=== PATIENT | female | born 1965 | race Caucasian/White ===

== ENCOUNTER 2020-10-08 08:06 | Outpatient (REF) | payer MEDICAID, SELFPAY ==
[2020-10-08 09:30] LABS: Alanine Aminotransferase 40 U/L (0-31); Albumin Level 4.5 g/dL (3.5-5.0); Alkaline Phosphatase 69 U/L (39-117); Anion Gap 15 (12-20); Aspartate Amino Transferase 24 U/L (5-31); Bilirubin Total 0.4 mg/dL (0.0-1.0); Blood Urea Nitrogen 24 mg/dL (9-16); Calcium 9.8 mg/dL (8.4-10.2); Carbon Dioxide 26 mmol/L (22-29); Chloride 106 mmol/L (96-108); Cholesterol 292 mg/dL; Estimated Glomerular Filt Rate > 60; Glucose Fasting 113 mg/dL (60-99); HDL Cholesterol 48 mg/dL; Potassium 4.6 mmol/L (3.3-5.1); Sodium 142 mmol/L (135-145); Total Protein 7.2 g/dL (6.5-8.0); Triglycerides 769 mg/dL
== END 2020-10-08 08:07 | disposition home or self-care (01) ==
LOC: HO.LAB 08:06
PROVIDERS: PCP Internal Medicine; Visit Provider Internal Medicine
DX: I10 Essential (primary) hypertension (principal); E78.5 Hyperlipidemia, unspecified
CPT/HCPCS: 36415; 80053; 80061

== ENCOUNTER 2021-01-25 09:28 | Outpatient (REF) | payer MEDICAID, SELFPAY ==
--- NOTE | ~2021-01-25 | XR_ITS ---
EXAMINATION: XR CHEST CLINICAL INFORMATION: Cough COMPARISON: None TECHNIQUE: 2 views of the chest were obtained. FINDINGS: The cardiac and mediastinal contours are normal. The lungs are clear. There is no pleural effusion or pneumothorax. There is slight elevation of the right hemidiaphragm. There are mild degenerative changes of the thoracic spine. XR/XR chest 2V IMPRESSION: No evidence for acute disease in the chest.
== END 2021-01-25 09:29 | disposition home or self-care (01) ==
LOC: HO.HMGCX 09:28
PROVIDERS: PCP Internal Medicine; Visit Provider Physician Assistant
DX: R05.9 Cough, unspecified (principal)
CPT/HCPCS: 71046

== ENCOUNTER 2021-01-25 16:59 | Outpatient (REF) | payer MEDICAID, SELFPAY | END 2021-01-25 17:00 | disposition home or self-care (01) | LOC: HO.LNP 16:59 | PROVIDERS: Visit Provider Physician Assistant | DX: Z20.822 Contact with and (suspected) exposure to COVID-19 (principal); R05.9 Cough, unspecified | CPT/HCPCS: 71046; U0003; U0005 ==

== ENCOUNTER 2021-03-24 08:27 | Outpatient (REF) | payer OTHER, SELFPAY ==
[2021-03-24 09:23] LABS: Alanine Aminotransferase 35 U/L (0-31); Albumin Level 4.5 g/dL (3.5-5.0); Alkaline Phosphatase 55 U/L (39-117); Anion Gap 11 (12-20); Aspartate Amino Transferase 24 U/L (5-31); Bilirubin Total 0.4 mg/dL (0.0-1.0); Blood Urea Nitrogen 19 mg/dL (9-16); C Reactive Protein 0.06 mg/dL (< or = 0.50); Calcium 9.9 mg/dL (8.4-10.2); Carbon Dioxide 29 mmol/L (22-29); Chloride 106 mmol/L (96-108); Cholesterol 259 mg/dL; Estimated Glomerular Filt Rate > 60; Glucose Fasting 95 mg/dL (60-99); HDL Cholesterol 54 mg/dL; LDL Cholesterol Calculated 142 mg/dl; Potassium 4.7 mmol/L (3.3-5.1); Sodium 141 mmol/L (135-145); Total Protein 7.3 g/dL (6.5-8.0); Triglycerides 316 mg/dL
[2021-03-24 09:32] LABS: Rheumatoid Factor < 15.0 IU/mL (<15.0)
[2021-03-24 09:57] LABS: Erythrocyte Sedimentation Rate 6 MM/HR (0-20)
[2021-03-25 13:01] LABS: Anti DNA DS Antibody <1 IU/mL
[2021-03-25 13:21] LABS: Anti Nuclear Antibody Screen NEGATIVE (NEGATIVE)
[2021-03-25 14:47] LABS: Cyclic Citrullinated Peptide <16 UNITS
[2021-03-25 21:26] LABS: Lyme Abs Screen <0.90 index
[2021-03-28 13:01] LABS: Vitamin D 25-OH, D2 <4 ng/mL; Vitamin D 25-OH, D3 35 ng/mL; Vitamin D 25-OH, Total 35 ng/mL (30-100)
== END 2021-03-24 08:28 | disposition home or self-care (01) ==
LOC: HO.LAB 08:27
PROVIDERS: PCP Internal Medicine; Visit Provider Internal Medicine
DX: M25.50 Pain in unspecified joint (principal); I10 Essential (primary) hypertension; E78.5 Hyperlipidemia, unspecified; E55.9 Vitamin D deficiency, unspecified
CPT/HCPCS: 36415; 80053; 80061; 82306; 85652; 86038; 86039; 86140; 86200; 86225; 86431; 86617; 86618

== ENCOUNTER 2021-09-30 09:16 | Outpatient (REF) | payer OTHER, SELFPAY ==
[2021-09-30 09:25] LABS: MANUAL DIFF FLAG NO
[2021-09-30 09:53] LABS: Basophils Percent Auto 0.6 % (0-2); Eosinophils Absolute Auto 0.1 X10*3/uL (0.0-0.4); Eosinophils Percent Auto 2.3 % (0-4); Hemoglobin 12.5 g/dl (12.0-16.0); Imm Gran Abs Auto 0.02 X10*3/uL (0.00-0.03); Imm Gran Pct Auto 0.4 % (0.0-0.4); Lymphocytes Absolute Auto 1.3 X10*3/uL (1.2-4.9); Lymphocytes Percent Auto 25.1 % (20-40); Mean Corpuscular HGB Conc 31.3 g/dl (31.0-35.0); Mean Corpuscular Volume 83.3 fL (80.0-98.0); Mean Platelet Volume 10.4 fL (9.4-12.3); Monocytes Absolute Auto 0.3 X10*3/uL (0.1-1.2); Monocytes Percent Auto 6.1 % (2-11); Neutrophils Absolute Auto 3.4 x10*3/uL (2.0-8.3); Neutrophils Percent Auto 65.5 % (45-73); Platelet Count 239 X10*3/uL (160-400); Red Cell Distribution Width 14.5 % (11.0-16.0); White Blood Count 5.3 X10*3/uL (4.8-10.8)
[2021-09-30 10:52] LABS: Thyroid Stimulating Hormone 1.45 uIU/mL (0.32-4.0); Vitamin D 25-OH Total 27.1 ng/mL (>30)
[2021-09-30 10:53] LABS: Alanine Aminotransferase 48 U/L (0-31); Albumin Level 4.4 g/dL (3.5-5.0); Alkaline Phosphatase 71 U/L (39-117); Anion Gap 14 (12-20); Aspartate Amino Transferase 29 U/L (5-31); Bilirubin Total 0.5 mg/dL (0.0-1.0); Blood Urea Nitrogen 14 mg/dL (9-16); Calcium 9.3 mg/dL (8.4-10.2); Carbon Dioxide 25 mmol/L (22-29); Chloride 106 mmol/L (96-108); Cholesterol 261 mg/dL; Estimated Glomerular Filt Rate > 60; Glucose Fasting 109 mg/dL (60-99); HDL Cholesterol 51 mg/dL; Potassium 4.3 mmol/L (3.3-5.1); Sodium 141 mmol/L (135-145); Total Protein 6.9 g/dL (6.5-8.0); Triglycerides 465 mg/dL
[2021-09-30 11:10] LABS: Vitamin B12 288 pg/mL (200-900)
== END 2021-09-30 09:17 | disposition home or self-care (01) ==
LOC: HO.LAB 09:16
PROVIDERS: PCP Internal Medicine; Visit Provider Internal Medicine
DX: R53.83 Other fatigue (principal); I10 Essential (primary) hypertension; E78.5 Hyperlipidemia, unspecified
CPT/HCPCS: 36415; 80053; 80061; 82306; 82607; 82746; 84443; 85025

== ENCOUNTER 2022-01-29 12:35 | Outpatient (REF) | payer OTHER, SELFPAY ==
--- NOTE | ~2022-01-29 | MM_ITS ---
EXAMINATION: MM SCREENING DIGITAL BREAST TOMOSYNTHESIS, BILATERAL CLINICAL INFORMATION: Screening. Asymptomatic. COMPARISON: Mammography: 10/18/2018, 09/10/2016, 08/15/2015 TECHNIQUE: Digital breast tomosynthesis is performed in both the craniocaudal and mediolateral oblique views along with computer-aided detection (CAD). Synthesized 2D images are generated from the tomosynthesis. FINDINGS: There are scattered areas of fibroglandular density (ACR BI-RADS breast composition Category b). Parenchymal pattern is similar to prior studies. There is no developing density or architectural abnormality. No significant mass. No abnormal calcifications. Small fibronodular densities central and outer right breast are stable from prior exam. The axilla and skin contours are unremarkable. No significant changes. MM/MM tomosynthesis screening BI IMPRESSION: No mammographic evidence of malignancy. ASSESSMENT: BI-RADS 2: Benign RECOMMENDATION: Routine annual mammography screening. This patient's information was entered into a reminder system with a target due date for their next mammogram.
== END 2022-01-29 12:36 | disposition home or self-care (01) ==
LOC: HO.MAMMO 12:35
PROVIDERS: Visit Provider Internal Medicine
DX: Z12.31 Encounter for screening mammogram for malignant neoplasm of breast (principal)
CPT/HCPCS: 77063; 77067

== ENCOUNTER 2022-05-22 08:47 | Outpatient (REF) | payer OTHER, SELFPAY ==
[2022-05-22 09:52] LABS: Alanine Aminotransferase 36 U/L (0-31); Albumin Level 4.3 g/dL (3.5-5.0); Alkaline Phosphatase 63 U/L (39-117); Anion Gap 12 (12-20); Aspartate Amino Transferase 23 U/L (5-31); Bilirubin Total 0.8 mg/dL (0.0-1.0); Blood Urea Nitrogen 16 mg/dL (9-16); Calcium 9.5 mg/dL (8.4-10.2); Carbon Dioxide 28 mmol/L (22-29); Chloride 106 mmol/L (96-108); Cholesterol 231 mg/dL; Estimated Glomerular Filt Rate > 60; Glucose Fasting 105 mg/dL (60-99); HDL Cholesterol 34 mg/dL; LDL Cholesterol Calculated 134 mg/dl; Potassium 4.4 mmol/L (3.3-5.1); Sodium 142 mmol/L (135-145); Total Protein 6.5 g/dL (6.5-8.0); Triglycerides 316 mg/dL
== END 2022-05-22 08:48 | disposition home or self-care (01) ==
LOC: HO.LAB 08:47
PROVIDERS: PCP Internal Medicine; Visit Provider Internal Medicine
DX: Z00.00 Encounter for general adult medical examination without abnormal findings (principal); E78.5 Hyperlipidemia, unspecified
CPT/HCPCS: 36415; 80053; 80061

== ENCOUNTER 2022-06-02 10:41 | Outpatient (REF) | payer OTHER, SELFPAY ==
[2022-06-05 05:24] LABS: HPV mRNA E6/E7 rflx Not Detected (Not Detected)
== END 2022-06-02 10:42 | disposition home or self-care (01) ==
LOC: HO.LNP 10:41
PROVIDERS: PCP Internal Medicine; Visit Provider Advanced Practice Midwife
DX: Z01.419 Encounter for gynecological examination (general) (routine) without abnormal findings (principal)
CPT/HCPCS: 87624; 88142

== ENCOUNTER 2023-01-07 12:43 | Outpatient (AMB) | payer OTHER, SELFPAY ==
--- NOTE | 2023-01-07 12:46 | MHC.PC.OV ---
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: No Accompanied by: Self / Same As Patient Allergies amlodipine Allergy (Intermediate, Verified 01/07/23 12:56) ankle edema codeine [CODEINE] Allergy (Intermediate, Verified 01/07/23 12:56) VOMITING hydrochlorothiazide Allergy (Intermediate, Verified 01/07/23 12:56) low urine output lisinopril Allergy (Intermediate, Verified 01/07/23 12:56) dry cough Penicillins [PENICILLINS] Allergy (Intermediate, Verified 01/07/23 12:56) RASH/GI UPSET Medication List - Last Reconciled 01/07/23 by Ariadne Burgess MD coenzyme Q10 (CoQ-10) 100 mg PO DAILY fluoxetine 40 mg PO DAILY metoprolol succinate ER 25 mg PO DAILY 30 days pantoprazole 40 mg PO DAILY simvastatin 20 mg PO BEDTIME wlssgwr-hnex-krmnf-oreg-capryl 100 mg-150 mg- 50 mg-150 mg 1 cap PO DAILY Tobacco use date assessed: 08/14/22 Dental Screening Dental Screen Date: 01/07/23 Did you have a dental visit in the last 12 months?: Yes Did you have a dental problem in the last 6 months where you did not have access to dental care?: No Was dental information given to patient?: Patient has dentist HPI HPI Comments History of Present Illness Details This is a 57-year-old female with mild recurrent major depression that comes today for her physical exam. Blood pressure elevated and will be recheck in 3 weeks by nurse navigator. Last mammogram was 2022 and was normal. Last Pap smear was May 2022 and was normal. Last colonoscopy was 2017 showing tubular adenoma and will be referred to Gastroenterology for another colonoscopy. No chest pain or shortness of breath. Has cut down on drinking alcohol. Depression stable with SSRIs. [facility] Medical History (Updated 01/07/23 @ 13:10 by Ariadne Burgess MD) Mixed hyperlipidemia Fatigue Mild recurrent major depression Polyarthralgia Depression GERD (gastroesophageal reflux disease) Dyslipidemia Essential hypertension Surgical History Status post correction of deviated nasal septum History of right knee surgery History of tonsillectomy History of tubal ligation History of section Family History Father Hypertension Mother Fibroids Impaired glucose tolerance Maternal Grandmother Bone cancer Maternal Grandfather Diabetes Hypertension CVD (cardiovascular disease) Paternal Grandmother No problems noted. Paternal Grandfather No problems noted. 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 Gerardo Bui, Theresa Crowley, Ethan Siddiqi and colleagues, with an educational alcides from [employer]. Review of Systems Const All systems reviewed & are unremarkable except as noted in HPI and below Eyes Reports no additional complaints, Denies change in vision and Denies other visual disturbances Card Denies chest pain at rest, Denies chest pain with activity, Denies edema, Denies irregular heart rhythm, Denies claudication, Denies dyspnea, Denies dyspnea on exertion, Denies orthopnea, Denies paroxysmal nocturnal dyspnea and Denies slow heart rate Resp Denies cough, Denies dyspnea and Denies dyspnea on exertion GI Denies abdominal pain, Denies change in bowel habits, Denies excessive flatus, Denies nausea and Denies vomiting Denies urinary incontinence, Denies urinary hesitancy and Denies urinary urgency Musc Denies abnormal gait, Denies atrophy, Denies deformity and Denies limited range of motion Skin/Breast Denies bleeding lesions, Denies changing lesions and Denies rash Neuro Denies abnormal gait and Denies lack of coordination Physical exam (Primary Care) Vital Signs: Last Vital Signs Pulse 76 01/07/23 12:48 BP 158/90 H 01/07/23 12:48 Pulse Ox 98 01/07/23 12:48 Oxygen Delivery Method Room Air 01/07/23 12:48 BMI result Body Mass Index 30.3 Tobacco/Smoking Status: Tobacco use Status Tobacco use date assessed 08/14/22 01/07/23 12:51 Patient Tobacco Use Status Former Tobacco user 01/07/23 13:02 Tobacco use type Cigarette 01/07/23 13:02 e-Cigarette/Vaping Use Never Used 01/07/23 13:02 Thrive Assessment: Date of Thrive Assessment Date Thrive assessed 08/14/22 01/07/23 12:51 Const Orientation/consciousness: patient oriented x3 HENMT Head: Yes normal to inspection, Yes normocephalic and Yes atraumatic Ears: external ears normal Eyes General: appearance normal, both eyes and all related structures Eyelids: Yes eyelids normal Conjunctivae: conjunctivae normal Neck Neck: Yes normal visual inspection and Yes supple Resp Effort & Inspection: normal respiratory effort Auscultation: clear to auscultation bilaterally Cardio Jugular venous distension: no JVD Rate: regular rate Rhythm: regular rhythm Heart sounds: S1 normal heart sound present and S2 normal heart sound present GI Inspection: Yes normal to inspection Palpation (GI): Soft to palpation and nontender Auscultation: normal bowel sounds Skin General skin exam: no rashes or lesions noted Neuro General: patient oriented x3 and no focal motor deficits Extrem General: Yes full ROM Psych Appearance: grossly normal Office Procedures Flu Questionnaire Does the patient have a severe egg allergy?: No Immunizations flu vacc [id number] 6mos up(PF) 60 mcg(15 mcgx4)/0.5 mL IM syringe Performing Provider: Ariadne Burgess MD [facility] Documented (not given) by: PAUL Barnes on 01/07/23 12:52 Reason Not Given: Patient Refused Assessment and Plan Assessment & Plan (1) Physical exam: Code(s): Z00.00 - Encounter for general adult medical examination without abnormal findings Plan: Repeat in a year. (2) Mild recurrent major depression: Code(s): F33.0 - Major depressive disorder, recurrent, mild Plan: Continue fluoxetine. Orders: Orders Lipid Panel Today E78.5 - Hyperlipidemia, unspecified, Z00.00 - Encounter for general adult medical examination without abnormal findings Influenza [id number] Immunization Today Z23 - Encounter for immunization Comprehensive [place]. Panel Fast Today Z00.00 - Encounter for general adult medical examination without abnormal findings Referrals Gastroenterology Referral D12.6 - Benign neoplasm of colon, unspecified Coding Level of Care Code Est Pt Prev Care 40-64y(76562) Diagnoses Physical exam Z00.00 Mild recurrent major depression F33.0 Time Spent (min) 35
[2023-01-07 12:48] VITALS: BP 158/90; PULSE 76; O2SAT 98; BMI 30.3
[2023-01-07 13:53] VITALS: BP 150/90
== END 2023-01-07 13:13 | disposition home or self-care (01) ==
PROVIDERS: Visit Provider Internal Medicine
DX: Z00.00 Encounter for general adult medical examination without abnormal findings (principal); F33.0 Major depressive disorder, recurrent, mild
CPT/HCPCS: 99396

== ENCOUNTER 2023-03-03 12:54 | Outpatient (REF) | payer OTHER, SELFPAY ==
[2023-03-04 05:54] LABS: Rubella IgG Antibody 3.13 Index
== END 2023-03-03 12:55 | disposition home or self-care (01) ==
LOC: HO.LAB 12:54
PROVIDERS: PCP Internal Medicine; Visit Provider Internal Medicine
DX: Z01.84 Encounter for antibody response examination (principal)
CPT/HCPCS: 36415; 86735; 86762; 86765

== ENCOUNTER 2023-05-25 13:20 | Outpatient (AMB) | payer OTHER, SELFPAY ==
[2023-05-25 13:23] VITALS: BP 160/94; BMI 30.8
--- NOTE | 2023-05-25 13:23 | A.OFFPC_ITS ---
Vital Signs 05/25/23 13:23 05/25/23 13:59 Height 5 ft 6 in Weight 191 lb BMI 30.8 BP 160/94 H 138/82 Blood Pressure Location Lt brachial Lt brachial Position Sitting Sitting Intake Visit Reasons: bp Intake Note: Patient here for a follow up BP Blind Teacher Required: No Accompanied by: Self / Same As Patient Allergies amlodipine Allergy (Intermediate, Verified 05/25/23 13:49) ankle edema codeine [CODEINE] Allergy (Intermediate, Verified 05/25/23 13:49) VOMITING hydrochlorothiazide Allergy (Intermediate, Verified 05/25/23 13:49) low urine output lisinopril Allergy (Intermediate, Verified 05/25/23 13:49) dry cough Penicillins [PENICILLINS] Allergy (Intermediate, Verified 05/25/23 13:49) RASH/GI UPSET Medication List - Last Reconciled 05/25/23 by Ariadne Burgess MD coenzyme Q10 (CoQ-10) 100 mg PO DAILY fluoxetine 40 mg PO DAILY metoprolol succinate ER 25 mg PO DAILY 30 days pantoprazole 40 mg PO DAILY simvastatin 20 mg PO BEDTIME Tobacco use date assessed: 05/25/23 Dental Screening Dental Screen Date: 05/25/23 Did you have a dental visit in the last 12 months?: Yes Did you have a dental problem in the last 6 months where you did not have access to dental care?: No Was dental information given to patient?: Patient has dentist HPI HPI Comments History of Present Illness Details This is a 58-year-old female with GERD, mild major depression, mixed hyperlipidemia and impaired glucose tolerance that comes today for follow-up on her conditions. Blood pressure slightly elevated which then was repeated and was normal. Blood pressure will still be recheck in 3 weeks by nurse navigator. GERD stable with PPIs. Depression well controlled with fluoxetine. On statins for her cholesterol. Had elevated fasting blood glucose will be monitor. Patient denies any polyuria, polydipsia or unintentional weight loss. [facility] Medical History (Updated 05/25/23 @ 14:01 by Ariadne Burgess MD) Mixed hyperlipidemia Fatigue Mild recurrent major depression Polyarthralgia Depression GERD (gastroesophageal reflux disease) Dyslipidemia Essential hypertension Surgical History Status post correction of deviated nasal septum History of right knee surgery History of tonsillectomy History of tubal ligation History of section Family History Father Hypertension Mother Fibroids Impaired glucose tolerance Maternal Grandmother Bone cancer Maternal Grandfather Diabetes Hypertension CVD (cardiovascular disease) Paternal Grandmother No problems noted. Paternal Grandfather No problems noted. 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 1. Little interest or pleasure in doing things: more than half the days 2. Feeling down, depressed, or hopeless: several days 3. Trouble falling or staying asleep, or sleeping too much: not at all 4. Feeling tired or having little energy: more than half the days 5. Poor appetite or overeating: several days 6. Feeling bad about yourself - or that you are a failure or have let yourself or your family down: not at all 7. Trouble concentrating on things, such as reading the newspaper or watching television: more than half the days 8. Moving or speaking so slowly that other people could have noticed. Or the opposite - being so fidgety or restless that you have been moving around a lot more than usual: nearly every day 9. Thoughts that you would be better off or of hurting yourself in some way: not at all Total score: 11 Depression Screening Interpretation: Positive Depression Screening Follow-up: Existing condition and In treatment Depression Screening Done: Yes 54544 - PHQ-9 Billing: Yes Source: Developed by Drs. Gerardo Bui, Theresa Crowley, Ethan Siddiqi and colleagues, with an educational alcides from [employer]. Thrive Questionnaire Date Thrive assessed: 05/25/23 I am a: Patient What is your living situation today?: I have a steady place to live Within the past 12 months, did the food you bought not last and you didn't have the money to get more?: Never true Within the past 12 months, did you worry whether your food would run out before you got money to buy more?: Never true Do you have trouble paying for medicines?: No Do you have trouble getting transportation to medical appointments?: No Do you have trouble paying your heating and electricity bill?: No Do you have trouble taking care of your child, family member or friend?: No Do you have trouble with day-to-day activities such as bathing, preparing meals, shopping, managing finances, etc.?: No Are you currently unemployed and looking for a job?: No Are you interested in more education?: No Please select the resources that you would like help with: None Currently or been in a relationship where the following occur: no concerns reported THRIVE Score: 0 AUDIT C Alcohol Use Questionnaire (AUDIT-C) 1. How often do you have a drink containing alcohol?: 2-3 times a week 2. How many drinks containing alcohol do you have on a typical day when you are drinking?: 5 or 6 3. How often do you have six or more drinks on one occasion?: Less than monthly Total Score: 6 Score Reviewed/Action Taken: Yes ELVIS-7 AMB Questionnaire ELVIS-7 Date ELVIS - 7 assessed: 05/25/23 Feeling nervous, anxious, or on edge: 1 = Several days Not being able to stop or control worryin = Not at all Worrying too much about different things: 2 = More than half the days Trouble relaxin = More than half the days Being so restless that it is hard to sit still: 1 = Several days Becoming easily annoyed or irritable: 0 = Not at all Feeling afraid as if something awful might happen: 0 = Not at all Total ELVIS-7 score (0-4 normal; 5-9 mild; 10-14 moderate; 15-21 severe): 6 Source: Developed by Drs. Gerardo Bui, Theresa Crowley, Ethan Siddiqi and colleagues, with an educational alcides from [employer]. ELVIS-7 Assessment Billing ELVIS-7 Assessment Tool: ELVIS-7 Assessment 30021 Review of Systems Const All systems reviewed & are unremarkable except as noted in HPI and below Eyes Reports no additional complaints, Denies change in vision and Denies other visual disturbances Card Denies chest pain at rest, Denies chest pain with activity, Denies edema, Denies irregular heart rhythm, Denies claudication, Denies dyspnea, Denies dyspnea on exertion, Denies orthopnea, Denies paroxysmal nocturnal dyspnea and Denies slow heart rate Resp Denies cough, Denies dyspnea and Denies dyspnea on exertion GI Denies abdominal pain, Denies change in bowel habits, Denies excessive flatus, Denies nausea and Denies vomiting Denies urinary incontinence, Denies urinary hesitancy and Denies urinary urgency Musc Denies abnormal gait, Denies atrophy, Denies deformity and Denies limited range of motion Skin/Breast Denies bleeding lesions, Denies changing lesions and Denies rash Neuro Denies abnormal gait, Denies behavioral changes and Denies lack of coordination Psych Denies behavioral changes Physical exam (Primary Care) Vital Signs: Last Vital Signs BP 138/82 05/25/23 13:59 BMI result Body Mass Index 30.8 Tobacco/Smoking Status: Tobacco use Status Tobacco use date assessed 05/25/23 05/25/23 13:33 Patient Tobacco Use Status Former Tobacco user 05/25/23 13:33 Tobacco use type Cigarette 05/25/23 13:33 e-Cigarette/Vaping Use Never Used 05/25/23 13:33 PHQ-9: PHQ-9 Score PHQ-9: Total score 11 05/25/23 13:56 Depression Screening Interpretation: Positive Depression Screening Follow-up: Existing condition and In treatment Thrive Assessment: Date of Thrive Assessment Date Thrive assessed 05/25/23 05/25/23 13:35 Currently or been in a relationship where the following occur: no concerns reported Eyes General: appearance normal, both eyes and all related structures Eyelids: Yes eyelids normal Conjunctivae: conjunctivae normal Neck Neck: Yes normal visual inspection and Yes supple Resp Effort & Inspection: normal respiratory effort Auscultation: clear to auscultation bilaterally Cardio Jugular venous distension: no JVD Rate: regular rate Rhythm: regular rhythm Heart sounds: S1 normal heart sound present and S2 normal heart sound present Extrem General: Yes full ROM Psych Appearance: grossly normal Assessment and Plan Assessment & Plan (1) Mild recurrent major depression: Code(s): F33.0 - Major depressive disorder, recurrent, mild Plan: Continue fluoxetine. (2) GERD (gastroesophageal reflux disease): Code(s): K21.9 - Gastro-esophageal reflux disease without esophagitis Qualifiers: Esophagitis presence: esophagitis presence not specified Qualified Code(s): K21.9 - Gastro-esophageal reflux disease without esophagitis Plan: Continue PPIs. (3) Mixed hyperlipidemia: Code(s): E78.2 - Mixed hyperlipidemia Plan: Continue statins. (4) Impaired fasting glucose: Code(s): R73.01 - Impaired fasting glucose Plan: Follow a low-carbohydrate diet. Do exercise. Orders: Orders Lipid Panel Today E78.5 - Hyperlipidemia, unspecified Comprehensive [place]. Panel Fast Today R73.01 - Impaired fasting glucose Vitamin D 25-OH Total Today E55.9 - Vitamin D deficiency, unspecified Referrals Open Access Screening Colonoscopy Referral D12.6 - Benign neoplasm of colon, unspecified, Z12.11 - Encounter for screening for malignant neoplasm of colon Orthopedics Referral M25.511 - Pain in right shoulder Coding Level of Care Code Est Pt Level 4 (62963) Diagnoses Mild recurrent major depression F33.0 Gastroesophageal reflux disease, unspecified whether esophagitis present K21.9 Esophagitis presence: esophagitis presence not specified Mixed hyperlipidemia E78.2 Impaired fasting glucose R73.01 Additional Codes ELVIS-7 Assessment Billing - ELVIS-7 Assessment Tool: ELVIS-7 Assessment 41988 ([id number]) Time Spent (min) 24
[2023-05-25 13:59] VITALS: BP 138/82
== END 2023-05-25 14:02 | disposition home or self-care (01) ==
PROVIDERS: PCP Internal Medicine; Visit Provider Internal Medicine
DX: K21.9 Gastro-esophageal reflux disease without esophagitis (principal); F33.0 Major depressive disorder, recurrent, mild; E78.2 Mixed hyperlipidemia; R73.01 Impaired fasting glucose
CPT/HCPCS: 99214

== ENCOUNTER 2023-06-08 09:58 | Outpatient (AMB) | payer OTHER, SELFPAY ==
--- NOTE | 2023-06-08 10:06 | MHC.OFFVIS ---
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 She is doing well with no concerns. Attempting to eat a healthy diet with calcium and vitamin D and stays active with exercise. Currently not sexually active w/her partner. Denies any vaginal dryness or irritation. STI testing offered; she declined. Last pap smear; 2020. Last mammogram; not UTD. Colonoscopy is not UTD. Denies any family history of breast, ovarian or colon cancer. [facility] Medical History Mixed hyperlipidemia Fatigue Mild recurrent major depression Polyarthralgia Depression GERD (gastroesophageal reflux disease) Dyslipidemia Essential hypertension Surgical History Status post correction of deviated nasal septum History of right knee surgery History of tonsillectomy History of tubal ligation History of section Family History Father Hypertension Mother Fibroids Impaired glucose tolerance Maternal Grandmother Bone cancer Maternal Grandfather Diabetes Hypertension CVD (cardiovascular disease) Paternal Grandmother No problems noted. Paternal Grandfather No problems noted. 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 Cognitive needs: No Hearing needs: No Vision needs: No Female Reproductive History Menstrual control method: permanent sterilization Permanent Sterilization: BTL Total pregnancies: 2 Full term: 1 Number of Living Children: 1 Date of last pap smear: 06/02/22 (neg pap and hpv) Date of Mammogram: 01/29/22 ([facility] 2) Review of Systems Const All systems reviewed & are unremarkable except as noted in HPI and below Reports as per HPI Eyes Reports no additional complaints ENT Reports no additional complaints Card Reports no additional complaints Resp Reports no additional complaints GI Reports as per HPI and Reports no additional complaints Reports as per HPI Musc Reports no additional complaints Skin/Breast Reports as per HPI Neuro Reports no additional complaints Psych Reports no additional complaints Endo Reports no additional complaints Ron/Lymph Reports no additional complaints Aller/Immun Reports no additional complaints Physical Exam Vital Signs: Last Vital Signs BP 150/82 H 06/08/23 10:07 BMI result Body Mass Index 30.7 Const General: cooperative, healthy appearing, no acute distress, well developed and alert Orientation/consciousness: patient oriented x3 HEENT Head: Yes normal to inspection Eyes General: appearance normal, both eyes and all related structures Neck Neck: Yes normal visual inspection Thyroid: Thyroid normal Chest Chest palpation & inspection: normal inspection of the chest and other (no puckering, dimpling, peau de orange, retraction, discharge, masses) Breast/axilla inspection: normal inspection of the breasts Breast/axilla palpation: normal palpation of the breasts Resp Effort & Inspection: normal respiratory effort GI Inspection: Yes normal to inspection Palpation (GI): Soft to palpation Rectal Exam - Female: deferred General: Yes bladder normal to palpation External Female Exam: normal external appearance and normal appearance of the urethra Speculum Exam - Vagina: normal appearance of the vagina, normal palpation, normal vaginal discharge and vagina atrophic Speculum Exam - Cervix: normal appearance of the cervix and normal palpation Bimanual exam- vagina & uterus: normal bimanual exam, normal palpation, uterine size normal, bladder normal to palpation, normal palpation and non-tender Bimanual Exam- Adnexa, other: no masses Skin General skin exam: no rashes or lesions noted Rashes: no rashes Neuro General: patient oriented x3 Cognition (Neuro): normal cognition Extrem General: Yes normal to inspection Psych Attitude: cooperative Thought process: Normal thought process present Assessment & Plan Assessment & Plan (1) Encounter for well woman exam with routine gynecological exam: Code(s): Z01.419 - Encounter for gynecological examination (general) (routine) without abnormal findings Plan Discussed: Current recommendations for pap smears per ASCCP guidelines. Breast awareness, periodic self breast exams and yearly mammogram. Maintain a healthy lifestyle, well balanced diet including Calcium 1,200 mg and Vitamin D 600 IU daily, and routine exercise. Contact the office with any postmenopausal bleeding. Patient verbalizes understanding and agrees to the plan of care. She was given opportunity to ask questions and all questions were answered to the best of my ability. RTO in 1 year for annual joy loader exam. This note is constructed using voice recognition software. While every effort has been made to ensure accuracy, washroom cleaner errors may have been included. Orders: Orders MM tomosynthesis screening BI Today Z12.31 - Encounter for screening mammogram for malignant neoplasm of breast Coding Level of Care Code Est Pt Prev Care 40-64y(12556) Diagnoses Encounter for well woman exam with routine gynecological exam Z01.419
[2023-06-08 10:07] VITALS: BP 150/82; BMI 30.7
== END 2023-06-08 10:29 | disposition home or self-care (01) ==
PROVIDERS: Visit Provider Advanced Practice Midwife
DX: Z01.419 Encounter for gynecological examination (general) (routine) without abnormal findings (principal)
CPT/HCPCS: 99396

== ENCOUNTER → 2023-06-08 09:58 | Outpatient (BNVA) | payer OTHER, SELFPAY | PROVIDERS: Visit Provider Advanced Practice Midwife ==

== ENCOUNTER 2023-06-16 07:09 | Outpatient (REF) | payer OTHER, SELFPAY ==
--- NOTE | ~2023-06-16 | XR_ITS ---
EXAMINATION: XR SHOULDER, RIGHT CLINICAL INFORMATION: Right shoulder pain COMPARISON: None available. TECHNIQUE: Two views of the right shoulder. FINDINGS: The bones and soft tissues are normal. No fracture. Glenohumeral and acromioclavicular alignment is anatomic with normal joint space. No abnormal soft tissue calcifications. XR/XR shoulder RT min 2V IMPRESSION: Normal right shoulder.
== END 2023-06-16 07:10 | disposition home or self-care (01) ==
LOC: HO.HOSX 07:09
PROVIDERS: Visit Provider Orthopaedic Surgery
DX: M25.511 Pain in right shoulder (principal)
CPT/HCPCS: 73030

== ENCOUNTER 2023-06-16 13:47 | Outpatient (AMB) | payer OTHER, SELFPAY ==
[2023-06-16 13:49] VITALS: BMI 30.7
--- NOTE | 2023-06-16 13:49 | MHC.OFFVIS ---
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 Patient reports her pain has been going on for about 4 years. She thinks that she may have injured her right shoulder while playing softball years ago. She states she has had a cortisone injection which seemed to make her pain worse. She has also done physical therapy which aggravated her pain. She reports difficulty lifting her right hand above shoulder height. Allergies amlodipine Allergy (Intermediate, Verified 06/16/23 14:10) ankle edema codeine [CODEINE] Allergy (Intermediate, Verified 06/16/23 14:10) VOMITING hydrochlorothiazide Allergy (Intermediate, Verified 06/16/23 14:10) low urine output lisinopril Allergy (Intermediate, Verified 06/16/23 14:10) dry cough Penicillins [PENICILLINS] Allergy (Intermediate, Verified 06/16/23 14:10) RASH/GI UPSET PFSH Medical History Mixed hyperlipidemia Fatigue Mild recurrent major depression Polyarthralgia Depression GERD (gastroesophageal reflux disease) Dyslipidemia Essential hypertension Surgical History Status post correction of deviated nasal septum History of right knee surgery History of tonsillectomy History of tubal ligation History of section Family History Father Hypertension Mother Fibroids Impaired glucose tolerance Maternal Grandmother Bone cancer Maternal Grandfather Diabetes Hypertension CVD (cardiovascular disease) Paternal Grandmother No problems noted. Paternal Grandfather No problems noted. 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 Cognitive needs: No Hearing needs: No Vision needs: No Physical Exam Vital Signs: BMI result Body Mass Index 30.7 Const Other: Well-nourished well-developed very friendly female awake alert and oriented x3 in no acute distress Extrem Other: Bilateral upper extremity examination shows good capillary refill, no skin lesions noted, normal sensation light touch Right shoulder examination shows decreased range of motion when compared to her left shoulder, 4+ out of 5 strength with supraspinatus testing, positive impingement signs, tenderness over her acromioclavicular joint, no instability Results Reviewed Results Reviewed: X-rays of the patient's right shoulder show severe acromioclavicular joint narrowing, a type 3 acromion, no acute bony abnormalities Assessment & Plan Assessment & Plan (1) Right shoulder pain: Code(s): M25.511 - Pain in right shoulder Plan Ms. Mandujano presents with progressively worsening right shoulder pain and weakness due to impingement syndrome as well as possible full-thickness rotator cuff tearing. Thus, I will send the patient for an MRI of her right shoulder for further evaluation. I will see her back once the MRI is completed to discuss the findings and treatment options. She will continue with her range of motion exercises in the meantime to prevent stiffness. Feel free to call me at any time should questions regarding her orthopedic management arise. Thank you very much for asking me to see this very friendly patient. I spent 22 minutes in reviewing the patient's records and imaging studies, seeing the patient and documenting in the medical record. Orders: Orders XR shoulder RT min 2V Today M25.511 - Pain in right shoulder MR shoulder RT wo con Today M25.511 - Pain in right shoulder Coding Level of Care Code New Pt Level 2 (68012) Diagnoses Right shoulder pain M25.511
== END 2023-06-16 14:20 | disposition home or self-care (01) ==
PROVIDERS: PCP Internal Medicine; Visit Provider Orthopaedic Surgery
DX: M25.511 Pain in right shoulder (principal)
CPT/HCPCS: 99202

== ENCOUNTER 2023-06-29 07:21 | Outpatient (REF) | payer OTHER, SELFPAY | END 2023-06-29 07:22 | disposition home or self-care (01) | LOC: HO.MAMMO 07:21 | PROVIDERS: PCP Internal Medicine; Visit Provider Advanced Practice Midwife | DX: Z12.31 Encounter for screening mammogram for malignant neoplasm of breast (principal) | CPT/HCPCS: 77063; 77067 ==

== ENCOUNTER → 2023-06-29 07:30 | Outpatient (BNV) | payer SELFPAY | PROVIDERS: PCP Internal Medicine; Visit Provider Radiology Diagnostic Radiology | DX: Z12.31 Encounter for screening mammogram for malignant neoplasm of breast (principal) | CPT/HCPCS: 77063; 77067 ==

== ENCOUNTER 2023-07-19 10:13 | Outpatient (REF) | payer OTHER, SELFPAY ==
--- NOTE | ~2023-07-19 | MR_ITS ---
EXAMINATION: MR SHOULDER WITHOUT CONTRAST, RIGHT CLINICAL INFORMATION: Chronic right shoulder pain. Decreased range of motion. COMPARISON: Right shoulder radiographs dated 06/16/2023 and MRI dated 09/21/2017. TECHNIQUE: MRI of the shoulder without contrast was performed on a high-field scanner. FINDINGS: ROTATOR CUFF: Mild supraspinatus and infraspinatus tendinosis. Focus of bursal surface partial tearing at the junctional fibers measuring approximately 1.4 x 1.2 cm (AP by ML), increased in prominence when compared to the prior examination. The articular surface tendon fibers remaining intact. [id number] subscapularis tendinosis, increased when compared to the prior examination. No full-thickness rotator cuff tendon tear. No muscle atrophy or fatty infiltration. BICEPS: Intact. CORACOACROMIAL ARCH: The undersurface of the acromion is curved with tiny subacromial spurs. Mild acromioclavicular osteoarthritis, similar when compared to the prior examination. Fluid and edema within the subacromial-subdeltoid bursa, consistent mild bursitis, decreased when compared to the prior examination. LABRUM/CAPSULE: No labral tear. Intact joint capsule. GLENOHUMERAL JOINT/MARROW: Intact articular cartilage. No acute osseous injury. MR/MR shoulder RT wo con IMPRESSION: 1. Mild supraspinatus and infraspinatus tendinosis with a focus of bursal surface partial tearing at the junctional fibers measuring 1.4 x 1.2 cm, increased in prominence when compared to the prior examination. The articular surface tendon fibers remain intact. 2. Hhij-xe-kzzswirs subscapularis tendinosis, increased when compared to the prior examination. 3. Mild acromioclavicular osteoarthritis with tiny subacromial spurs, unchanged. 4. Mild subacromial-subdeltoid bursitis, decreased when compared to the prior examination.
== END 2023-07-19 10:14 | disposition home or self-care (01) ==
LOC: HO.MRI 10:13
PROVIDERS: PCP Internal Medicine; Visit Provider Orthopaedic Surgery
DX: M25.511 Pain in right shoulder (principal)
CPT/HCPCS: 73221

== ENCOUNTER 2023-08-10 14:34 | Outpatient (AMB) | payer OTHER, SELFPAY ==
[2023-08-10 14:41] VITALS: BMI 30.7
--- NOTE | 2023-08-10 14:41 | MHC.OFFVIS ---
Vital Signs 08/10/23 14:41 Height 5 ft 6 in Weight 190 lb BMI 30.7 Intake Visit Reasons: OV- MRI review Right shoulder Intake Note: Emy is a 58 year old female who presents with complaints of intermittent discomfort in her right shoulder. She reports mild weakness when lifting her right hand above shoulder height. She takes Tylenol and anti-inflammatory medicines which gave her mild relief. 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 Allergies amlodipine Allergy (Intermediate, Verified 08/10/23 14:42) ankle edema codeine [CODEINE] Allergy (Intermediate, Verified 08/10/23 14:42) VOMITING hydrochlorothiazide Allergy (Intermediate, Verified 08/10/23 14:42) low urine output lisinopril Allergy (Intermediate, Verified 08/10/23 14:42) dry cough Penicillins [PENICILLINS] Allergy (Intermediate, Verified 08/10/23 14:42) RASH/GI UPSET Medication List - Last Reconciled 08/11/23 by Papi Rogel MD coenzyme Q10 (CoQ-10) 100 mg PO DAILY fluoxetine 40 mg PO DAILY metoprolol succinate ER 25 mg PO DAILY 30 days pantoprazole 40 mg PO DAILY simvastatin 20 mg PO BEDTIME REPLACED BY [facility] Medical History Mixed hyperlipidemia Fatigue Mild recurrent major depression Polyarthralgia Depression GERD (gastroesophageal reflux disease) Dyslipidemia Essential hypertension Surgical History Status post correction of deviated nasal septum History of right knee surgery History of tonsillectomy History of tubal ligation History of section Family History Father Hypertension Mother Fibroids Impaired glucose tolerance Maternal Grandmother Bone cancer Maternal Grandfather Diabetes Hypertension CVD (cardiovascular disease) Paternal Grandmother No problems noted. Paternal Grandfather No problems noted. 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 Cognitive needs: No Hearing needs: No Vision needs: No Physical Exam Vital Signs: BMI result Body Mass Index 30.7 Const Other: Well-nourished well-developed very friendly female awake alert and oriented x3 in no acute distress Extrem Other: Bilateral upper extremity examination shows good capillary refill, no skin lesions noted, normal sensation light touch Right shoulder examination shows full range of motion when compared to her left shoulder, 4/5 strength with supraspinatus testing, positive impingement signs, tenderness over her acromioclavicular joint, no instability Results Reviewed Results Reviewed: MRI of the patient's right shoulder shows severe acromioclavicular joint narrowing, a type 2 acromion, a small tear of the anterior aspect of the supraspinatus tendon Assessment & Plan Assessment & Plan (1) Right shoulder pain: Code(s): M25.511 - Pain in right shoulder Category: Medical Plan Ms. Mandujano presents with intermittent right shoulder discomfort due to impingement syndrome and a small rotator cuff tear. I had a lengthy discussion with the patient regarding the treatment options. At this point the patient's symptoms are tolerable to her. She wishes to hold off on surgery. The patient does understand that her tear can become larger in size and even irreparable over time. The do's and don'ts of lifting were discussed at length with the patient. She will contact me prior to her follow-up appointment in 4-6 months should her symptoms worsen in any way. Feel free to call me at any time should questions regarding her orthopedic management arise. I spent 22 minutes in reviewing the patient's records and imaging studies, seeing the patient and documenting in the medical record. Coding Level of Care Code Est Pt Level 3 (41140) Diagnoses Right shoulder pain M25.511
== END 2023-08-10 14:59 | disposition home or self-care (01) ==
PROVIDERS: PCP Internal Medicine; Visit Provider Orthopaedic Surgery
DX: M25.511 Pain in right shoulder (principal)
CPT/HCPCS: 99213

== ENCOUNTER → 2023-08-10 14:34 | Outpatient (BNVA) | payer OTHER, SELFPAY | PROVIDERS: PCP Internal Medicine; Visit Provider Orthopaedic Surgery ==

== ENCOUNTER 2024-01-10 09:22 | Outpatient (AMB) | payer OTHER, SELFPAY ==
[2024-01-10 09:32] VITALS: BP 160/88; BMI 30.5
--- NOTE | 2024-01-10 09:32 | A.OFFPC_ITS ---
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 Required: No Accompanied by: Self / Same As Patient Allergies amlodipine Allergy (Intermediate, Verified 01/10/24 09:46) ankle edema codeine [CODEINE] Allergy (Intermediate, Verified 01/10/24 09:46) VOMITING hydrochlorothiazide Allergy (Intermediate, Verified 01/10/24 09:46) low urine output lisinopril Allergy (Intermediate, Verified 01/10/24 09:46) dry cough Penicillins [PENICILLINS] Allergy (Intermediate, Verified 01/10/24 09:46) RASH/GI UPSET Medication List - Last Reconciled 01/10/24 by Ariadne Burgess MD coenzyme Q10 (CoQ-10) 100 mg PO DAILY fluoxetine 40 mg PO DAILY metoprolol succinate ER 25 mg PO DAILY 30 days pantoprazole 40 mg PO DAILY simvastatin 20 mg PO BEDTIME Tobacco use date assessed: 05/25/23 Dental Screening Dental Screen Date: 05/25/23 HPI HPI Comments History of Present Illness Details This is a 58-year-old female with mild recurrent major depression and hypertension that comes for her physical exam. Depression stable with SSRIs. Blood pressure elevated and she has not take her metoprolol and I will change metoprolol to verapamil. Blood pressure will be recheck in 3 weeks by nurse navigator. Denies any chest pain or shortness on breath. Mammogram done 2023 was normal. Pap smear done 2022 was normal. Colonoscopy is scheduled to be done this year. She fell about 2 months ago and hit her left ribcage and since then has hurt and would like to see chiropractor. She also has chronic lumbar pain that would also like to be evaluated by chiropractor services. She drinks alcohol and is trying to cut down. [facility] Medical History (Updated 01/10/24 @ 09:56 by Ariadne Burgess MD) Mixed hyperlipidemia Fatigue Mild recurrent major depression Polyarthralgia Depression GERD (gastroesophageal reflux disease) Dyslipidemia Essential hypertension Surgical History Status post correction of deviated nasal septum History of right knee surgery History of tonsillectomy History of tubal ligation History of section Family History Father Hypertension Dementia Mother Fibroids Impaired glucose tolerance Dementia Maternal Grandmother Bone cancer Maternal Grandfather Diabetes Hypertension CVD (cardiovascular disease) Paternal Grandmother No problems noted. Paternal Grandfather No problems noted. Maternal Aunt Cervical cancer Family/Other FH: mental illness Social History Housing: House Alcohol intake: current Alcohol intake frequency: a few times a week Alcohol type: beer Patient Tobacco Use Status: Former Tobacco user Tobacco use type: Cigarette e-Cigarette/Vaping Use: Never Used Second Hand Smoke Exposure: No service: Yes Current occupational status: employed Current occupation: [employer] , Right hand dominate Current occupational exposures/hazards: No Cognitive needs: No Hearing needs: No Vision needs: No Questionnaire PHQ-9 Over the last 2 weeks, how often have you been bothered by any of the following problems? 1. Little interest or pleasure in doing things: more than half the days 2. Feeling down, depressed, or hopeless: more than half the days 3. Trouble falling or staying asleep, or sleeping too much: more than half the days 4. Feeling tired or having little energy: more than half the days 5. Poor appetite or overeating: nearly every day 6. Feeling bad about yourself - or that you are a failure or have let yourself or your family down: several days 7. Trouble concentrating on things, such as reading the newspaper or watching television: several days 8. Moving or speaking so slowly that other people could have noticed. Or the opposite - being so fidgety or restless that you have been moving around a lot more than usual: several days 9. Thoughts that you would be better off or of hurting yourself in some way: not at all Total score: 14 Depression Screening Interpretation: Positive Depression Screening Follow-up: Existing condition, In treatment and Follow-up Visit Requested Depression Screening Done: Yes 20381 - PHQ-9 Billing: Yes Source: Developed by Drs. Gerardo Bui, Theresa Crowley, Ethan Siddiqi and colleagues, with an educational alcides from [employer]. Thrive Questionnaire Date Thrive assessed: 01/10/24 I am a: Patient What is your living situation today?: I have a steady place to live Within the past 12 months, did the food you bought not last and you didn't have the money to get more?: Never true Within the past 12 months, did you worry whether your food would run out before you got money to buy more?: Never true Do you have trouble paying for medicines?: No Do you have trouble getting transportation to medical appointments?: No Do you have trouble paying your heating and electricity bill?: No Do you have trouble taking care of your child, family member or friend?: No Do you have trouble with day-to-day activities such as bathing, preparing meals, shopping, managing finances, etc.?: Yes Are you currently unemployed and looking for a job?: No Are you interested in more education?: No Please select the resources that you would like help with: None Currently or been in a relationship where the following occur: No concerns reported THRIVE Score: 0 AUDIT C Alcohol Use Questionnaire (AUDIT-C) 1. How often do you have a drink containing alcohol?: 2-3 times a week 2. How many drinks containing alcohol do you have on a typical day when you are drinking?: 5 or 6 3. How often do you have six or more drinks on one occasion?: Weekly Total Score: 8 Score Reviewed/Action Taken: Yes (Advise to cut down on drinking alcohol) ELVIS-7 AMB Questionnaire ELVIS-7 Date ELVIS - 7 assessed: 01/10/24 Feeling nervous, anxious, or on edge: 1 = Several days Not being able to stop or control worryin = Several days Worrying too much about different things: 1 = Several days Trouble relaxin = Several days Being so restless that it is hard to sit still: 1 = Several days Becoming easily annoyed or irritable: 1 = Several days Feeling afraid as if something awful might happen: 1 = Several days Total ELVIS-7 score (0-4 normal; 5-9 mild; 10-14 moderate; 15-21 severe): 7 Source: Developed by Drs. Gerardo Bui, Theresa Crowley, Ethan Siddiqi and colleagues, with an educational alcides from [employer]. ELVIS-7 Assessment Billing ELVIS-7 Assessment Tool: ELVIS-7 Assessment 36552 Review of Systems Const All systems reviewed & are unremarkable except as noted in HPI and below Card Denies chest pain at rest, Denies chest pain with activity, Denies edema, Denies irregular heart rhythm, Denies claudication, Denies dyspnea, Denies dyspnea on exertion, Denies orthopnea, Denies paroxysmal nocturnal dyspnea and Denies slow heart rate Resp Denies cough, Denies dyspnea and Denies dyspnea on exertion GI Denies abdominal pain, Denies change in bowel habits, Denies excessive flatus, Denies nausea and Denies vomiting Musc Reports back pain Neuro Denies lack of coordination Physical exam (Primary Care) Vital Signs: Last Vital Signs BP 160/88 H 01/10/24 09:32 Care Plan Goal for BP management: Start verapamil and discontinue metoprolol. Blood pressure goal is equal or less than 130/80. Next steps: Recheck blood pressure with nurse navigator in 3 weeks. BMI result Body Mass Index 30.5 BMI Assessment/Plan discussion: High BMI High, discussed plan: lifestyle, weight reduction, dietary, physical activity and alcohol moderation Tobacco/Smoking Status: Tobacco use Status Tobacco use date assessed 05/25/23 01/10/24 09:36 Patient Tobacco Use Status Former Tobacco user 01/10/24 09:36 Tobacco use type Cigarette 01/10/24 09:36 e-Cigarette/Vaping Use Never Used 01/10/24 09:36 PHQ-9: PHQ-9 Score PHQ-9: Total score 14 01/10/24 09:53 Depression Screening Interpretation: Positive Depression Screening Follow-up: Existing condition, In treatment and Follow-up Visit Requested Thrive Assessment: Date of Thrive Assessment Date Thrive assessed 01/10/24 01/10/24 09:36 Currently or been in a relationship where the following occur: No concerns reported HENMT Head: Yes normal to inspection, Yes normocephalic and Yes atraumatic Ears: external ears normal Eyes General: appearance normal, both eyes and all related structures Eyelids: Yes eyelids normal Conjunctivae: conjunctivae normal Neck Neck: Yes normal visual inspection and Yes supple Resp Effort & Inspection: normal respiratory effort Auscultation: clear to auscultation bilaterally Cardio Jugular venous distension: no JVD Rate: regular rate Rhythm: regular rhythm Heart sounds: S1 normal heart sound present and S2 normal heart sound present GI Inspection: Yes normal to inspection Palpation (GI): Soft to palpation and nontender Auscultation: normal bowel sounds Skin General skin exam: no rashes or lesions noted Neuro General: no focal motor deficits Extrem General: Yes full ROM Psych Appearance: grossly normal Office Procedures Flu Questionnaire Does the patient have a severe egg allergy?: No Immunizations Fluarix Triv [id number] (PF) 45 mcg (15 mcg x 3)/0.5 mL IM syringe Performing Provider: Ariadne Burgess MD [facility] Documented (not given) by: PAUL Barnes on 01/10/24 09:38 Reason Not Given: Patient Refused Coding Level of Care Code Est Pt Level 3 (76704) Est Pt Prev Care 40-64y(10611) Diagnoses Physical exam Z00.00 Mild recurrent major depression F33.0 Lumbar pain M54.50 Rib pain R07.81 Essential hypertension I10 Additional Codes ELVIS-7 Assessment Billing - ELVIS-7 Assessment Tool: ELVIS-7 Assessment 25333 ([id number]) Time Spent (min) 34 Assessment & Plan Assessment & Plan (1) Physical exam: Code(s): Z00.00 - Encounter for general adult medical examination without abnormal findings Category: Medical Plan: Repeat in a year. (2) Mild recurrent major depression: Code(s): F33.0 - Major depressive disorder, recurrent, mild Category: Medical Plan: Continue SSRIs. (3) Lumbar pain: Code(s): M54.50 - Low back pain, unspecified Category: Medical Plan: Referred to chiropractor. (4) Rib pain: Code(s): R07.81 - Pleurodynia Category: Medical Plan: Referred to chiropractor. (5) Essential hypertension: Code(s): I10 - Essential (primary) hypertension Category: Medical Plan: Discontinue metoprolol. Start verapamil. Blood pressure goal is equal or less than 130/80. Recheck blood pressure with nurse navigator in 3 weeks. Orders: Orders Influenza [id number] Immunization Today Z23 - Encounter for immunization Lipid Panel Today E78.5 - Hyperlipidemia, unspecified Comprehensive [place]. Panel Fast Today Z00.00 - Encounter for general adult medical examination without abnormal findings Referrals Chiropractic Referral M54.50 - Low back pain, unspecified, R07.81 - Pleurodynia Medications: New verapamil ER 120 mg PO DAILY 90 caps 1RF 90 days I10 - Essential (primary) hypertension rosuvastatin 20 mg PO DAILY 90 tabs 1RF 90 days E78.5 - Hyperlipidemia, unspecified Discontinued simvastatin Discontinued Reason: Patient Completed Course 20 mg PO BEDTIME 90 tabs 3RF metoprolol succinate ER Discontinued Reason: Patient Completed Course 25 mg PO DAILY 30 days 60 tabs 0RF I10 - Essential (primary) hypertension
== END 2024-01-10 10:01 | disposition home or self-care (01) ==
PROVIDERS: PCP Internal Medicine; Visit Provider Internal Medicine
DX: Z00.00 Encounter for general adult medical examination without abnormal findings (principal); F33.0 Major depressive disorder, recurrent, mild; M54.50 Low back pain, unspecified; R07.81 Pleurodynia; I10 Essential (primary) hypertension

== ENCOUNTER → 2024-01-10 09:22 | Outpatient (BNVA) | payer OTHER, SELFPAY | PROVIDERS: PCP Internal Medicine; Visit Provider Internal Medicine | DX: Z00.00 Encounter for general adult medical examination without abnormal findings (principal); F33.0 Major depressive disorder, recurrent, mild; M54.50 Low back pain, unspecified; R07.81 Pleurodynia; I10 Essential (primary) hypertension | CPT/HCPCS: 90471; 96127 ==

== ENCOUNTER 2024-05-23 08:53 | Day surgery (SDC) | payer OTHER, SELFPAY ==
--- NOTE | 2024-05-22 09:11 | P.CONAN_ITS ---
Documented by User: Shelby Guthrie NP 05/22/24 09:11 HPI - Anesthesia Eval Consult details Narrative: 59yo F for Colonoscopy PMFSH Active Problems Active Problems: All Active Problems Physical exam (Acute) Rib pain (Acute) Lumbar pain (Acute) Right shoulder pain (Acute) Immunization due (Acute) Tubular adenoma of colon (Acute) Impaired fasting glucose (Acute) Physical exam (Acute) Mixed hyperlipidemia (Acute) Fatigue (Acute) Mild recurrent major depression (Acute) Polyarthralgia (Acute) GERD (gastroesophageal reflux disease) (Acute) Dyslipidemia (Acute) Essential hypertension (Acute) Past Medical History Medical History Mixed hyperlipidemia Fatigue Mild recurrent major depression Polyarthralgia Depression GERD (gastroesophageal reflux disease) Dyslipidemia Essential hypertension Family History Family History Father Hypertension Dementia Mother Fibroids Impaired glucose tolerance Dementia Maternal Grandmother Bone cancer Maternal Grandfather Diabetes Hypertension CVD (cardiovascular disease) Paternal Grandmother No problems noted. Paternal Grandfather No problems noted. Maternal Aunt Cervical cancer Family/Other FH: mental illness Surgical History Surgical History Status post correction of deviated nasal septum History of right knee surgery History of tonsillectomy History of tubal ligation History of section Social History Social History (Updated 05/23/24 @ 11:49 by Babs Silver MD) Housing: House Alcohol intake: current Alcohol intake frequency: holidays/special occasions only Alcohol type: beer Patient Tobacco Use Status: Former Tobacco user Tobacco use type: Cigarette e-Cigarette/Vaping Use: Never Used Second Hand Smoke Exposure: No Have you been hit, kicked, punched, or otherwise hurt by someone within the past year? 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 Current occupational exposures/hazards: No Cognitive needs: No Hearing needs: No Vision needs: No Meds Allergies Allergy/AdvReac Type Severity Reaction Status Date / Time amlodipine Allergy Intermediate ankle edema Verified 01/10/24 09:46 codeine [CODEINE] Allergy Intermediate VOMITING Verified 01/10/24 09:46 hydrochlorothiazide Allergy Intermediate low urine Verified 01/10/24 09:46 output lisinopril Allergy Intermediate dry cough Verified 01/10/24 09:46 Penicillins [PENICILLINS] Allergy Intermediate RASH/GI Verified 01/10/24 09:46 UPSET Home Medications ?Medication ?Instructions ?Recorded ?Confirmed ?Last Taken ?Type coenzyme Q10 100 mg capsule 100 mg PO DAILY 08/14/22 05/23/24 04/22/24 History (CoQ-10) Assessment and Plan Assessment Anesthesia Assessment: Chart Reviewed Documented by User: Babs Silver MD 05/23/24 12:47 PMFSH Active Problems Active Problems: All Active Problems Physical exam (Acute) Rib pain (Acute) Lumbar pain (Acute) Right shoulder pain (Acute) Immunization due (Acute) Tubular adenoma of colon (Acute) Impaired fasting glucose (Acute) Physical exam (Acute) Mixed hyperlipidemia (Acute) Fatigue (Acute) Mild recurrent major depression (Acute) Polyarthralgia (Acute) GERD (gastroesophageal reflux disease) (Acute) Dyslipidemia (Acute) Essential hypertension (Acute) H/o heavy ETOH use in the past. Not recently Marijuana use. Last 2 days ago Past Medical History Medical History Mixed hyperlipidemia Fatigue Mild recurrent major depression Polyarthralgia Depression GERD (gastroesophageal reflux disease) Dyslipidemia Essential hypertension Family History Family History Father Hypertension Dementia Mother Fibroids Impaired glucose tolerance Dementia Maternal Grandmother Bone cancer Maternal Grandfather Diabetes Hypertension CVD (cardiovascular disease) Paternal Grandmother No problems noted. Paternal Grandfather No problems noted. Maternal Aunt Cervical cancer Family/Other FH: mental illness Family history of problems with anesthesia: No Surgical History Surgical History Status post correction of deviated nasal septum History of right knee surgery History of tonsillectomy History of tubal ligation History of section History of Problems with Anesthesia: No Social History Social History (Updated 05/23/24 @ 11:49 by Babs Silver MD) Housing: House Alcohol intake: current Alcohol intake frequency: holidays/special occasions only Alcohol type: beer Patient Tobacco Use Status: Former Tobacco user Tobacco use type: Cigarette e-Cigarette/Vaping Use: Never Used Second Hand Smoke Exposure: No Have you been hit, kicked, punched, or otherwise hurt by someone within the past year? 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 Current occupational exposures/hazards: No Cognitive needs: No Hearing needs: No Vision needs: No Meds Allergies Allergy/AdvReac Type Severity Reaction Status Date / Time amlodipine Allergy Intermediate ankle edema Verified 01/10/24 09:46 codeine [CODEINE] Allergy Intermediate VOMITING Verified 01/10/24 09:46 hydrochlorothiazide Allergy Intermediate low urine Verified 01/10/24 09:46 output lisinopril Allergy Intermediate dry cough Verified 01/10/24 09:46 Penicillins [PENICILLINS] Allergy Intermediate RASH/GI Verified 01/10/24 09:46 UPSET Home Medications ?Medication ?Instructions ?Recorded ?Confirmed ?Last Taken ?Type coenzyme Q10 100 mg capsule 100 mg PO DAILY 08/14/22 05/23/24 04/22/24 History (CoQ-10) Exam Height,Weight and Vital Signs: Height 5 ft 6 in Weight 88.25 kg Vital Signs Temp Pulse Resp BP Pulse Ox O2 Del Method 05/23/24 09:11 96.9 F 88 20 129/86 97 Room Air Airway Mallampati Class: II TM Dist: >3cm Neck ROM: Full Loose/Missing/Broken Teeth: Yes (Missing tooth top right back and molars. Denies broken or loose teeth) Heart: RRR Lungs: CTAB. Diminished Assessment and Plan Assessment Anesthesia Assessment: Anesthesia Plan Discussed and Chart Reviewed Final Anesthetic Review Family History of Problems with Anesthesia: No History of Problems with Anesthesia: No NPO: Yes ASA Class: II Final Preanesthetic Review: No Changes in Pt Med Stat, Meds/Allgs Chart Reviewed, Consent Obtained/Reviewed and Anes Risks/Benef Reviewed Patient Risk: Intermediate Procedure Risk: Low Assessment/Block/Sedation in SS: Assess/Block/Sedation-SS Anesthetic Plan Anesthetic Plan: TIVA Disposition: Standard PACU
[2024-05-23 09:10] VITALS: BMI 31.0
[2024-05-23 09:11] VITALS: BP 129/86; PULSE 88; RESP 20; TEMP 36.1; O2SAT 97; BMI 31.4
[2024-05-23] MEDS: Lactated Ringers 1,000 ML 100 ML IVCONT (09:34)
--- NOTE | 2024-05-23 11:12 | MHC.SHP ---
Pre-Procedural Eval Section A - 24 Hr Update-Section A only Date of Service: 05/23/24 Section B - Complete if H&P > 30 days Chief Complaint: Hx of poylps Details of Present Illness: PMH: Mixed hyperlipidemia Fatigue Mild recurrent major depression Polyarthralgia Depression GERD (gastroesophageal reflux disease) Dyslipidemia Essential hypertension Surgical History Status post correction of deviated nasal septum History of right knee surgery History of tonsillectomy History of tubal ligation History of section Present Medications: see Short Stay Collaborative assessment Allergies: Allergies Allergy/AdvReac Type Severity Reaction Status Date / Time amlodipine Allergy Intermediate ankle edema Verified 01/10/24 09:46 codeine [CODEINE] Allergy Intermediate VOMITING Verified 01/10/24 09:46 hydrochlorothiazide Allergy Intermediate low urine Verified 01/10/24 09:46 output lisinopril Allergy Intermediate dry cough Verified 01/10/24 09:46 Penicillins [PENICILLINS] Allergy Intermediate RASH/GI Verified 01/10/24 09:46 UPSET Review of Systems Review of Systems Comment: Ten point ROS negative Exam Exam Comment: Gen appear: No acute distress HEENT: no icterus Chest: No overt resp distress Abd: soft, nontender, nondistended Psych: Stable affect, answering questions appropriately Neuro: A/Ox3 noted to move all extremities spontaneously Ext: no peripheral edema Plan Diagnosis/Plan: Unchanged Pt due for a colonoscopy for polyp surveillance. I have reviewed the history and physical and performed a pertinent physical examination on my patient. No changes have occurred unless specified. Time Spent With Patient Time: Total time managing care of this patient today ____ minutes.
--- NOTE | 2024-05-23 12:43 | P.OPN-COLO_ITS ---
Colonoscopy Operative Note Operative Note Date of Service: 05/23/24 Narrative: Procedure: Colonoscopy Indication: Personal history of polyps Endoscopist: Lisa Collins MD Anesthesia Provider: Dr Babs Silver Anesthesia type: MAC Instrument: Olympus [id number]-[id number] Consent: Indication, risks vs benefits, and alternatives were discussed with the patient who gave written informed consent to proceed. EKG, pulse, pulse oximetry and blood pressure were monitored throughout the procedure. Please see anesthesia flowsheet. Procedure: The patient was brought to the procedure room and placed in the left lateral decubitus position. IV medications were administered by the anesthesia provider in attendance. A digital rectal exam was performed which was normal. A distal attachment cap was affixed to the tip of the colonoscope which was then inserted through the anus and advanced through the colon to the cecum at 75 cm,and terminal ileum. Appendiceal orifice and ileocecal valve were identified. Mucosa was carefully examined under high definition white light as the instrument was slowly withdrawn in a retrograde panoramic fashion. Retroflexion was performed in ascending colon and rectum. The procedure was not difficult. There were no immediate obvious complications. The quality of the prep was BBPS: 2+2+3 = adequate Withdrawal time 12 minutes. Limitations: No limitations. Findings: Mucosa: Normal to cecum and terminal ileum. Protruding lesions: * 1 sessile polyp of size 3 mm in ascending colon. Cold snare polypectomy was performed. The polyp was completely removed and retrieved. * 1 sessile polyp of size 2 mm in sigmoid colon. Cold snare polypectomy was performed. The polyp was completely removed and retrieved. * Medium internal hemorrhoids without stigmata of recent bleeding. Excavated lesions: * Few diverticulosis of sigmoid colon. Impression: 1. Normal colon mucosa 2. Total of 2 polyps removed colon 3. Diverticulosis 4. Internal hemorrhoids Recommendations: - Follow path results. - Results will be mailed to the patient in 5-10 business days. - Repeat colonoscopy in 7 years if polyps are adenomas, or 5 years if sessile serrated.
[2024-05-23 12:45] VITALS: BP 122/65; PULSE 72; RESP 21; TEMP 36.6; O2SAT 97
[2024-05-23 13:00] VITALS: BP 112/85; PULSE 66; RESP 18; TEMP 36.6; O2SAT 96
== END 2024-05-23 13:25 | disposition home or self-care (01) ==
PROVIDERS: PCP Internal Medicine; Visit Provider Internal Medicine
PROC: 0DJD8ZZ Inspection of Lower Intestinal Tract, Via Natural or Artificial Opening Endoscopic (ICD-10-PCS; CPT 45378; principal; 2024-05-23 11:40)
DX: Z12.11 Encounter for screening for malignant neoplasm of colon (principal); D12.2 Benign neoplasm of ascending colon; K57.30 Diverticulosis of large intestine without perforation or abscess without bleeding; K64.8 Other hemorrhoids; Z86.0101 Personal history of adenomatous and serrated colon polyps; I10 Essential (primary) hypertension; E78.5 Hyperlipidemia, unspecified; K21.9 Gastro-esophageal reflux disease without esophagitis; F33.0 Major depressive disorder, recurrent, mild; Z79.899 Other long term (current) drug therapy; Z79.02 Long term (current) use of antithrombotics/antiplatelets
CPT/HCPCS: 45385; 88305; J2003; J2704

== ENCOUNTER → 2024-05-23 08:53 | Outpatient (BNV) | payer OTHER, SELFPAY | PROVIDERS: PCP Internal Medicine; Visit Provider Internal Medicine | DX: Z12.11 Encounter for screening for malignant neoplasm of colon (principal); Z86.0100 Personal history of colon polyps, unspecified; D12.2 Benign neoplasm of ascending colon; K57.30 Diverticulosis of large intestine without perforation or abscess without bleeding | CPT/HCPCS: 45385 ==

== ENCOUNTER 2024-06-27 14:16 | Outpatient (AMB) | payer OTHER, SELFPAY ==
--- NOTE | 2024-06-27 15:16 | AM.OFFWIN_ITS ---
Intake Vital Signs 06/27/24 15:30 Weight 180 lb BP 118/68 Blood Pressure Location Lt brachial Position Sitting Pulse 76 Pulse Source Pulse Oximeter Pulse Oximetry (%) 97 Oxygen Delivery Method Room Air Intake Visit Reasons: EP Rt foot pain/swelling Intake Note: Patient here for small dot on top of right foot that has been present on and off for about a month or so but recently it has been swelling up and getting red and hurting under her foot as well. Patient Tobacco Use Status: Former Tobacco user Allergies amlodipine Allergy (Intermediate, Verified 06/27/24 15:32) ankle edema codeine [CODEINE] Allergy (Intermediate, Verified 06/27/24 15:32) VOMITING hydrochlorothiazide Allergy (Intermediate, Verified 06/27/24 15:32) low urine output lisinopril Allergy (Intermediate, Verified 06/27/24 15:32) dry cough Penicillins [PENICILLINS] Allergy (Intermediate, Verified 06/27/24 15:32) RASH/GI UPSET HPI HPI Comments History of Present Illness Details This is a 59-year-old female with a past medical history of hypertension hyperlipidemia presenting for evaluation of a lesion on her right foot that has been waxing and waning over the past 2 months coupled with a discomfort on the plantar surface of her right foot. Patient denies any injury or trauma preceding the onset of her symptoms. Patient states the lesion on the top of her right foot was initially a ?red dot? which then became crusted and will occasionally be painful. Patient states that she has pain on that inside plantar surface of her right foot that is worse 1st thing in the morning. Patient has not taken any medication for treatment of her symptoms. [facility] Medical History Mixed hyperlipidemia Fatigue Mild recurrent major depression Polyarthralgia Depression GERD (gastroesophageal reflux disease) Dyslipidemia Essential hypertension Surgical History Status post correction of deviated nasal septum History of right knee surgery History of tonsillectomy History of tubal ligation History of section Family History Father Hypertension Dementia Mother Fibroids Impaired glucose tolerance Dementia Maternal Grandmother Bone cancer Maternal Grandfather Diabetes Hypertension CVD (cardiovascular disease) Paternal Grandmother No problems noted. Paternal Grandfather No problems noted. 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 Current occupational exposures/hazards: No Cognitive needs: No Hearing needs: No Vision needs: No Review of Systems Const All systems reviewed & are unremarkable except as noted in HPI and below Eyes Reports no additional complaints ENT Reports no additional complaints Card Reports no additional complaints Resp Reports no additional complaints GI Reports no additional complaints Reports no additional complaints Musc Details: pain right plantar foot Skin/Breast Details: waxing and waning lesion right dorsal foot Reports system reviewed and no additional complaints, except as documented Neuro Reports no additional complaints Psych Reports no additional complaints Endo Reports no additional complaints Ron/Lymph Reports no additional complaints Aller/Immun Reports no additional complaints Physical Exam Const General: cooperative, healthy appearing, comfortable, no acute distress, well developed, alert, awake and Physically active Nutritional Appearance: average body habitus Orientation/consciousness: patient oriented x3 Limitations: no limitations Skin Other: 3mm round erythematous scaly papule overlying the dorsal surface of the right 3rd metatarsal; no ecchymosis, surrounding erythema or fluctuance Neuro General: patient oriented x3 Extrem Right lower extremity: foot Details: normal capillary refill and tenderness (pain to palpation of the medial aspect of the plantar right foot distal > proximal; no pain to palpation of the calcaneus) Psych Appearance: grossly normal Mental Status: mental status grossly normal Insight: Good insight present (Psych) Judgement: Good judgement present (Psych) Assessment & Plan Assessment & Plan (1) Non-healing skin lesion: Comment: Recommend dermatology evaluation for further evaluation of this nonhealing lesion. Code(s): L98.9 - Disorder of the skin and subcutaneous tissue, unspecified Plan: Patient will request referral for primary care provider. (2) Plantar fasciitis of right foot: Comment: Discussed anti-inflammatories, icing after activity and wearing lace-up shoes for prevention of any worsening symptoms. Code(s): M72.2 - Plantar fascial fibromatosis Plan: Patient will follow up with Podiatry as an outpatient for any worsening symptoms. Coding Level of Care Code Est Pt Level 3 (65838) Diagnoses Non-healing skin lesion L98.9 Plantar fasciitis of right foot M72.2 Time Spent (min) 20
[2024-06-27 15:30] VITALS: BP 118/68; PULSE 76; O2SAT 97
== END 2024-06-27 15:47 | disposition home or self-care (01) ==
PROVIDERS: PCP Internal Medicine; Visit Provider Physician Assistant
DX: L98.9 Disorder of the skin and subcutaneous tissue, unspecified (principal); M72.2 Plantar fascial fibromatosis

== ENCOUNTER → 2024-06-27 14:16 | Outpatient (BNVA) | payer OTHER, SELFPAY | PROVIDERS: PCP Internal Medicine ==

== ENCOUNTER 2024-07-04 07:34 | Outpatient (REF) | payer OTHER, SELFPAY | END 2024-07-04 07:35 | disposition home or self-care (01) | LOC: HO.MAMMO 07:34 | PROVIDERS: PCP Internal Medicine; Visit Provider Internal Medicine | DX: Z12.31 Encounter for screening mammogram for malignant neoplasm of breast (principal) | CPT/HCPCS: 77063; 77067 ==

== ENCOUNTER → 2024-07-04 07:45 | Outpatient (BNV) | payer OTHER, SELFPAY | PROVIDERS: PCP Internal Medicine; Visit Provider Internal Medicine | DX: Z12.31 Encounter for screening mammogram for malignant neoplasm of breast (principal) | CPT/HCPCS: 77063; 77067 ==

== ENCOUNTER 2024-07-10 08:17 | Outpatient (REF) | payer OTHER, SELFPAY ==
[2024-07-10 09:25] LABS: Alanine Aminotransferase 41 U/L (0-31); Albumin Level 4.4 g/dL (3.5-5.0); Alkaline Phosphatase 67 U/L (39-117); Anion Gap 13 (12-20); Aspartate Amino Transferase 24 U/L (5-31); Bilirubin Total 0.3 mg/dL (0.0-1.0); Blood Urea Nitrogen 21 mg/dL (9-16); Calcium 9.6 mg/dL (8.4-10.2); Carbon Dioxide 28 mmol/L (22-29); Chloride 107 mmol/L (96-108); Cholesterol 196 mg/dL (<200); Estimated Glomerular Filt Rate > 60; Glucose Fasting 103 mg/dL (60-99); HDL Cholesterol 40 mg/dL (>40); LDL Cholesterol Calculated 95 mg/dL (<100); Potassium 4.7 mmol/L (3.3-5.1); Sodium 143 mmol/L (135-145); Triglycerides 306 mg/dL (<150)
== END 2024-07-10 08:18 | disposition home or self-care (01) ==
LOC: HO.LAB 08:17
PROVIDERS: PCP Internal Medicine; Visit Provider Internal Medicine
DX: L98.9 Disorder of the skin and subcutaneous tissue, unspecified (principal); M79.671 Pain in right foot; E78.2 Mixed hyperlipidemia; F33.0 Major depressive disorder, recurrent, mild; I10 Essential (primary) hypertension; Z79.899 Other long term (current) drug therapy; Z00.00 Encounter for general adult medical examination without abnormal findings
CPT/HCPCS: 36415; 80053; 80061; 96127

== ENCOUNTER 2024-07-10 10:36 | Outpatient (AMB) | payer OTHER, SELFPAY ==
--- NOTE | 2024-07-10 10:51 | A.OFFPC_ITS ---
Vital Signs 07/10/24 10:52 Height 5 ft 6 in Weight 187 lb BMI 30.2 BP 176/90 H Blood Pressure Location Lt brachial Position Sitting Intake Visit Reasons: bp Intake Note: Patient here for a follow up BP [employer] Assistant Required: No Accompanied by: Self / Same As Patient Allergies amlodipine Allergy (Intermediate, Verified 07/10/24 11:11) ankle edema codeine [CODEINE] Allergy (Intermediate, Verified 07/10/24 11:11) VOMITING hydrochlorothiazide Allergy (Intermediate, Verified 07/10/24 11:11) low urine output lisinopril Allergy (Intermediate, Verified 07/10/24 11:11) dry cough Penicillins [PENICILLINS] Allergy (Intermediate, Verified 07/10/24 11:11) RASH/GI UPSET Medication List - Last Reconciled 07/10/24 by Ariadne Burgess MD fluoxetine 40 mg PO DAILY pantoprazole 40 mg PO DAILY rosuvastatin 20 mg PO DAILY 90 days verapamil ER 120 mg PO DAILY 90 days Tobacco use date assessed: 07/10/24 Dental Screening Dental Screen Date: 07/10/24 Did you have a dental visit in the last 12 months?: No Did you have a dental problem in the last 6 months where you did not have access to dental care?: No Was dental information given to patient?: Patient has dentist HPI HPI Comments History of Present Illness Details The patient is a 59-year-old female presenting with foot pain. The foot pain has been present for several months, originally starting as a freckle that developed into a painful lump exacerbated by activity. Menopausal symptoms include persistent severe hot flashes, which have persisted despite lifestyle changes and cessation of alcohol intake. She has a history of hypertension, dyslipidemia, and depression, with medications including Fluoxetine, Pantoprazole, Rosuvastatin, and Verapamil. She reports previous thyroid functions as normal and improvements in cholesterol with current therapy. [facility] Medical History (Updated 07/10/24 @ 11:23 by Ariadne Burgess MD) Mixed hyperlipidemia Fatigue Mild recurrent major depression Polyarthralgia Depression GERD (gastroesophageal reflux disease) Dyslipidemia Essential hypertension Surgical History Status post correction of deviated nasal septum History of right knee surgery History of tonsillectomy History of tubal ligation History of section Family History Father Hypertension Dementia Mother Fibroids Impaired glucose tolerance Dementia Maternal Grandmother Bone cancer Maternal Grandfather Diabetes Hypertension CVD (cardiovascular disease) Paternal Grandmother No problems noted. Paternal Grandfather No problems noted. 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 1. Little interest or pleasure in doing things: nearly every day 2. Feeling down, depressed, or hopeless: nearly every day 3. Trouble falling or staying asleep, or sleeping too much: nearly every day 4. Feeling tired or having little energy: several days 5. Poor appetite or overeating: not at all 6. Feeling bad about yourself - or that you are a failure or have let yourself or your family down: not at all 7. Trouble concentrating on things, such as reading the newspaper or watching television: several days 8. Moving or speaking so slowly that other people could have noticed. Or the opposite - being so fidgety or restless that you have been moving around a lot more than usual: nearly every day 9. Thoughts that you would be better off or of hurting yourself in some way: not at all Total score: 14 Depression Screening Interpretation: Positive Depression Screening Follow-up: Existing condition, In treatment and Follow-up Visit Requested Depression Screening Done: Yes 15616 - PHQ-9 Billing: Yes Source: Developed by Drs. Gerardo Bui, Theresa Crowley, Ethan Siddiqi and colleagues, with an educational alcides from [employer]. Thrive Questionnaire Date Thrive assessed: 07/10/24 I am a: Patient What is your living situation today?: I have a steady place to live Within the past 12 months, did the food you bought not last and you didn't have the money to get more?: Never true Within the past 12 months, did you worry whether your food would run out before you got money to buy more?: Never true Do you have trouble paying for medicines?: No Do you have trouble getting transportation to medical appointments?: No Do you have trouble paying your heating and electricity bill?: No Do you have trouble taking care of your child, family member or friend?: No Do you have trouble with day-to-day activities such as bathing, preparing meals, shopping, managing finances, etc.?: Yes Are you currently unemployed and looking for a job?: No Are you interested in more education?: No Please select the resources that you would like help with: None Currently or been in a relationship where the following occur: No concerns reported THRIVE Score: 0 AUDIT C Alcohol Use Questionnaire (AUDIT-C) 1. How often do you have a drink containing alcohol?: 2-3 times a week 2. How many drinks containing alcohol do you have on a typical day when you are drinking?: 1 or 2 3. How often do you have six or more drinks on one occasion?: Less than monthly Total Score: 4 Score Reviewed/Action Taken: No ELVIS-7 AMB Questionnaire ELVIS-7 Date ELVIS - 7 assessed: 07/10/24 Feeling nervous, anxious, or on edge: 3 = Nearly every day Not being able to stop or control worryin = Several days Worrying too much about different things: 3 = Nearly every day Trouble relaxin = More than half the days Being so restless that it is hard to sit still: 2 = More than half the days Becoming easily annoyed or irritable: 2 = More than half the days Feeling afraid as if something awful might happen: 1 = Several days Total ELVIS-7 score (0-4 normal; 5-9 mild; 10-14 moderate; 15-21 severe): 14 Source: Developed by Drs. Gerardo Bui, Theresa Crowley, Ethan Siddiqi and colleagues, with an educational alcides from [employer]. ELVIS-7 Assessment Billing ELVIS-7 Assessment Tool: ELVIS-7 Assessment 22591 Review of Systems Const All systems reviewed & are unremarkable except as noted in HPI and below Card Denies chest pain at rest, Denies chest pain with activity, Denies edema, Denies irregular heart rhythm, Denies claudication, Denies dyspnea, Denies dyspnea on exertion, Denies orthopnea, Denies paroxysmal nocturnal dyspnea and Denies slow heart rate Resp Denies cough, Denies dyspnea and Denies dyspnea on exertion GI Denies abdominal pain, Denies change in bowel habits, Denies excessive flatus, Denies nausea and Denies vomiting Physical exam (Primary Care) Vital Signs: Last Vital Signs BP 176/90 H 07/10/24 10:52 BMI result Body Mass Index 30.2 BMI Assessment/Plan discussion: High BMI High, discussed plan: lifestyle, weight reduction, dietary and physical activity Tobacco/Smoking Status: Tobacco use Status Tobacco use date assessed 07/10/24 07/10/24 10:59 Patient Tobacco Use Status Former Tobacco user 07/10/24 10:59 Tobacco use type Cigarette 07/10/24 10:59 e-Cigarette/Vaping Use Never Used 07/10/24 10:59 PHQ-9: PHQ-9 Score PHQ-9: Total score 14 07/10/24 11:17 Depression Screening Interpretation: Positive Depression Screening Follow-up: Existing condition, In treatment and Follow-up Visit Requested Thrive Assessment: Date of Thrive Assessment Date Thrive assessed 07/10/24 07/10/24 10:59 Currently or been in a relationship where the following occur: No concerns reported Resp Effort & Inspection: normal respiratory effort Auscultation: clear to auscultation bilaterally Cardio Jugular venous distension: no JVD Rate: regular rate Rhythm: regular rhythm Heart sounds: S1 normal heart sound present and S2 normal heart sound present Extrem General: Yes full ROM Coding Level of Care Code Est Pt Level 4 (76138) Complex EM visit Add On G2211 Diagnoses Skin lesion L98.9 Right foot pain M79.671 Mixed hyperlipidemia E78.2 Mild recurrent major depression F33.0 Essential hypertension I10 Additional Codes ELVIS-7 Assessment Billing - ELVIS-7 Assessment Tool: ELVIS-7 Assessment 55452 ([id number]) PHQ-9 - 90466 - PHQ-9 Billing: Yes ([id number]) Time Spent (min) 22 Assessment & Plan Assessment & Plan (1) Skin lesion: Code(s): L98.9 - Disorder of the skin and subcutaneous tissue, unspecified Category: Medical (2) Right foot pain: Code(s): M79.671 - Pain in right foot Category: Medical (3) Mixed hyperlipidemia: Code(s): E78.2 - Mixed hyperlipidemia Category: Medical (4) Mild recurrent major depression: Code(s): F33.0 - Major depressive disorder, recurrent, mild Category: Medical (5) Essential hypertension: Code(s): I10 - Essential (primary) hypertension Category: Medical Plan To address foot pain potentially linked to plantar fasciitis, referrals to dermatology and podiatry have been arranged for further diagnostic evaluation. Continued therapy with Rosuvastatin has effectively improved her cholesterol profile and will be maintained alongside dietary advice for lipid regulation. Current medical management for menopausal symptoms and depression will persist, emphasizing non-pharmacological interventions such as diet and activity. Routine monitoring of liver function is planned due to mild enzyme elevation. Patient education includes dietary modification to lower triglycerides and reduction of carbonated drinks. A follow-up colonoscopy is advised after seven years based on prior adenoma detection. Patient was informed and verbally consented to the use of an ambient scribe for clinic note documentation during this visit. I discussed with the patient the importance of addressing her foot pain with specialist assessments, including dermatology and podiatry, to determine its etiology. The risks and benefits of continued pharmacotherapy for her chronic conditions, like Rosuvastatin for dyslipidemia and Fluoxetine for depression, were outlined, emphasizing their roles in mitigating health risks. I explained the need for periodic reviews of liver function due to enzyme irregularities and reassured her about the success in managing her cholesterol levels thus far. We reviewed dietary adjustments, particularly the significance of reducing seltzer intake, to manage menopausal symptoms and assist in weight control. Consent was obtained for referrals, and follow-up visits were scheduled to monitor progress, reassess therapy effectiveness, and address any new symptoms or concerns. Orders: Referrals Dermatology Referral L98.9 - Disorder of the skin and subcutaneous tissue, unspecified Medications: New ezetimibe 10 mg PO DAILY 90 tabs 1RF 90 days Refilled rosuvastatin 20 mg PO DAILY 90 tabs 1RF 90 days E78.5 - Hyperlipidemia, unspecified Patient Instructions: - Follow all referrals for podiatry and dermatology evaluations. - Continue prescribed medication regimen and report any side effects or concerns. - Maintain a healthy diet and consider reducing carbonated drink consumption. - Stay hydrated with water to assist in symptom management. - Schedule periodic follow-ups for hyperlipidemia and liver function monitoring. - Seek medical attention if symptoms worsen or new issues arise.
[2024-07-10 10:52] VITALS: BP 176/90; BMI 30.2
== END 2024-07-10 11:30 | disposition home or self-care (01) ==
PROVIDERS: PCP Internal Medicine; Visit Provider Internal Medicine
DX: L98.9 Disorder of the skin and subcutaneous tissue, unspecified (principal); M79.671 Pain in right foot; E78.2 Mixed hyperlipidemia; F33.0 Major depressive disorder, recurrent, mild; I10 Essential (primary) hypertension

== ENCOUNTER → 2024-08-03 10:35 | Outpatient (BNVA) | payer OTHER, SELFPAY | PROVIDERS: PCP Internal Medicine ==

== ENCOUNTER 2025-01-09 09:50 | Outpatient (AMB) | payer OTHER, SELFPAY ==
--- NOTE | 2025-01-09 09:54 | A.OFFPC_ITS ---
Vital Signs 01/09/25 09:55 Height 5 ft 6 in Weight 176 lb 8 oz BMI 28.5 BP 150/90 H Blood Pressure Location Lt brachial Position Sitting Pulse 69 Pulse Source Pulse Oximeter Temp 97.1 F Temp Source Temporal Artery Scan Pulse Oximetry (%) 98 Oxygen Delivery Method Room Air Intake Visit Reasons: bp Intake Note: Patient is here to follow up on bp. Lead Press Operator Required: No Falsework Builder: Not Required per policy Accompanied by: Self / Same As Patient Allergies amlodipine Allergy (Intermediate, Verified 01/09/25 10:18) ankle edema codeine (CODEINE) Allergy (Intermediate, Verified 01/09/25 10:18) VOMITING hydrochlorothiazide Allergy (Intermediate, Verified 01/09/25 10:18) low urine output lisinopril Allergy (Intermediate, Verified 01/09/25 10:18) dry cough Penicillins (PENICILLINS) Allergy (Intermediate, Verified 01/09/25 10:18) RASH/GI UPSET Medication List - Last Reconciled 01/09/25 by Ariadne Burgess MD ezetimibe 10 mg PO DAILY 90 days fluoxetine 40 mg PO DAILY pantoprazole 40 mg PO DAILY rosuvastatin 20 mg PO DAILY 90 days verapamil ER 120 mg PO DAILY 90 days Tobacco use date assessed: 01/09/25 Dental Screening Dental Screen Date: 07/10/24 HPI HPI Comments History of Present Illness Details The patient is a 59-year-old female presenting with elevated blood pressure and depression. Also has some anxiety that is stable and dyslipidemia on statins. Blood pressure will be monitor at home. Her blood pressure was recorded at 150/90 mmHg during this visit, which she attributes to stress from caregiving responsibilities for her father with Alzheimer's disease. She has a history of allergies to several medications and is currently taking verapamil for blood pressure management. The patient reports mild to moderate depression, exacerbated by family stress and caregiving duties. She is on fluoxetine, which she finds effective in managing her symptoms. She has a significant reduction in alcohol consumption and is exploring alternative methods for cannabis use to avoid smoking. [facility] Medical History (Updated 01/09/25 @ 12:08 by Ariadne Burgess MD) Mixed hyperlipidemia Fatigue Mild recurrent major depression Polyarthralgia Depression GERD (gastroesophageal reflux disease) Dyslipidemia Essential hypertension Surgical History Status post correction of deviated nasal septum History of right knee surgery History of tonsillectomy History of tubal ligation History of section Family History Father Hypertension Dementia Mother Fibroids Impaired glucose tolerance Dementia Maternal Grandmother Bone cancer Maternal Grandfather Diabetes Hypertension CVD (cardiovascular disease) Paternal Grandmother No problems noted. Paternal Grandfather No problems noted. 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 1. Little interest or pleasure in doing things: several days 2. Feeling down, depressed, or hopeless: several days 3. Trouble falling or staying asleep, or sleeping too much: several days 4. Feeling tired or having little energy: several days 5. Poor appetite or overeating: more than half the days 6. Feeling bad about yourself - or that you are a failure or have let yourself or your family down: several days 7. Trouble concentrating on things, such as reading the newspaper or watching television: several days 8. Moving or speaking so slowly that other people could have noticed. Or the opposite - being so fidgety or restless that you have been moving around a lot more than usual: several days 9. Thoughts that you would be better off or of hurting yourself in some way: not at all Total score: 9 Depression Screening Interpretation: Positive Depression Screening Follow-up: Existing condition, In treatment and Follow-up Visit Requested Depression Screening Done: Yes [id number] - PHQ-9 Billing: Yes Source: Developed by Drs. Gerardo Bui, Theresa Crowley, Ethan Siddiqi and colleagues, with an educational alcides from [employer]. Thrive Questionnaire Date Thrive assessed: 01/03/25 I am a: Patient What is your living situation today?: I choose not to answer this question Within the past 12 months, did the food you bought not last and you didn't have the money to get more?: Never true Within the past 12 months, did you worry whether your food would run out before you got money to buy more?: Never true Do you have trouble paying for medicines?: No Do you have trouble getting transportation to medical appointments?: No Do you have trouble paying your heating and electricity bill?: No Do you have trouble taking care of your child, family member or friend?: No Do you have trouble with day-to-day activities such as bathing, preparing meals, shopping, managing finances, etc.?: I choose not to answer this question Are you currently unemployed and looking for a job?: No Are you interested in more education?: Yes Please select the resources that you would like help with: None Currently or been in a relationship where the following occur: I choose not to answer THRIVE Score: 0 AUDIT C Alcohol Use Questionnaire (AUDIT-C) 1. How often do you have a drink containing alcohol?: 4 or more times a week Total Score: 4 ELVIS-7 AMB Questionnaire ELVIS-7 Date ELVIS - 7 assessed: 01/09/25 Feeling nervous, anxious, or on edge: 2 = More than half the days Not being able to stop or control worryin = More than half the days Worrying too much about different things: 2 = More than half the days Trouble relaxin = Nearly every day Being so restless that it is hard to sit still: 2 = More than half the days Becoming easily annoyed or irritable: 2 = More than half the days Feeling afraid as if something awful might happen: 2 = More than half the days Total ELVIS-7 score (0-4 normal; 5-9 mild; 10-14 moderate; 15-21 severe): 15 Source: Developed by Drs. Gerardo Bui, Theresa Crowley, Ethan Siddiqi and colleagues, with an educational alcides from [employer]. ELVIS-7 Assessment Billing ELVIS-7 Assessment Tool: ELVIS-7 Assessment 88331 Review of Systems Const All systems reviewed & are unremarkable except as noted in HPI and below Card Denies chest pain at rest, Denies chest pain with activity, Denies edema, Denies irregular heart rhythm, Denies claudication, Denies dyspnea, Denies dyspnea on exertion, Denies orthopnea, Denies paroxysmal nocturnal dyspnea and Denies slow heart rate Resp Denies cough, Denies dyspnea and Denies dyspnea on exertion Physical exam (Primary Care) Vital Signs: Last Vital Signs Temp 97.1 F 01/09/25 09:55 Pulse 69 01/09/25 09:55 BP 150/90 H 01/09/25 09:55 Pulse Ox 98 01/09/25 09:55 Oxygen Delivery Method Room Air 01/09/25 09:55 BMI result Body Mass Index 28.5 Tobacco/Smoking Status: Tobacco use Status Tobacco use date assessed 01/09/25 01/09/25 10:00 Patient Tobacco Use Status Former Tobacco user 01/09/25 10:26 Tobacco use type Cigarette 01/09/25 10:26 e-Cigarette/Vaping Use Never Used 01/09/25 10:26 PHQ-9: PHQ-9 Score PHQ-9: Total score 9 01/09/25 10:27 Depression Screening Interpretation: Positive Depression Screening Follow-up: Existing condition, In treatment and Follow-up Visit Requested Thrive Assessment: Date of Thrive Assessment Date Thrive assessed 01/03/25 01/09/25 10:00 Currently or been in a relationship where the following occur: I choose not to answer Resp Effort & Inspection: normal respiratory effort Auscultation: clear to auscultation bilaterally Cardio Jugular venous distension: no JVD Rate: regular rate Rhythm: regular rhythm Heart sounds: S1 normal heart sound present and S2 normal heart sound present Extrem General: Yes full ROM Coding Level of Care Code Est Pt Level 4 (00723) Complex EM visit Add On G2211 Diagnoses Essential hypertension I10 Mild recurrent major depression F33.0 Dyslipidemia E78.5 ELVIS (generalized anxiety disorder) F41.1 Additional Codes ELVIS-7 Assessment Billing - ELVIS-7 Assessment Tool: ELVIS-7 Assessment 37697 ([id number]) PHQ-9 - 72410 - PHQ-9 Billing: Yes ([id number]) Time Spent (min) 21 Assessment & Plan Assessment & Plan (1) Essential hypertension: Code(s): I10 - Essential (primary) hypertension Category: Medical (2) Mild recurrent major depression: Code(s): F33.0 - Major depressive disorder, recurrent, mild Category: Medical (3) Dyslipidemia: Code(s): E78.5 - Hyperlipidemia, unspecified Category: Medical (4) ELVIS (generalized anxiety disorder): Code(s): F41.1 - Generalized anxiety disorder Category: Medical Plan Plan 1. Essential Hypertension The patient will monitor her blood pressure at home and continue with verapamil, with follow-up readings to be reviewed at the next visit. 2. Depression The patient will maintain her current dose of fluoxetine and seek counseling support, with a referral to be provided for an experienced therapist. 3. Anxiety Continue fluoxetine. 4. Dyslipidemia Continue statins. Orders: Orders Vitamin D 25-OH Total 6 Months E55.9 - Vitamin D deficiency, unspecified Lipid Panel 6 Months E78.5 - Hyperlipidemia, unspecified Comprehensive [place]. Panel Fast 6 Months I10 - Essential (primary) hypertension Referrals Counseling Referral F33.0 - Major depressive disorder, recurrent, mild
[2025-01-09 09:55] VITALS: BP 150/90; PULSE 69; TEMP 36.2; O2SAT 98; BMI 28.5
--- OUTSIDE RECORDS SUMMARY | 2025-01-09 11:07 | XMS_ITS | Patient Health Record ---
Author Organization [facility] Address [address] [place] [address] Care Team Providers Care Zoning Administrator Name Role Phone Ariadne Neil Primary Care Provider Ignacio Frederick Jr Unavailable Allergies Allergen (clinical drug ingredient) Drug/Non Drug Allergy documented on EMR Reaction Allergy Type Onset Date Status Penicillin Unknown Drug Allergy Active codeine Codeine Sulfate Unknown Drug Allergy A ctive Reason For Referral No Information Medications Medication SIG (Take, Route, Frequency, Duration) Notes Start Date End Date Status Simvastatin 20 MG 1 tablet in the even ing Orally Once a day 12/28/2018 Active Pantoprazole Sodium 40 MG 1 tablet Orall y Once a day; Duration: 30 day(s) Active hydroCHLOROthiazide 25 MG TAKE 1 TABLET BY MOUTH EVERY DAY IN THE MORNING Orally Once a day Active PROzac 40 MG 1 capsule Orally Onc e a day Active Immunizations Vaccine Route Administration Date Status Comme nts Influenza Unknown 12/28/2018 Refused Social History Tobacco Use: Social History Observation Description Date Details (start date - stop date) Former Smoker NA - NA Tobacco Use/Smoking Question Answer Notes Patient is a former smoker How long has it been since you last smoked? > 10 years Alcohol Screen Question Answer Notes Did you have a drink contain ing alcohol in the past year? Yes How often did you have a dri nk containing alcohol in the past year? 4 or more times a week (4 points) How many drinks did you have on a typical day when you were drinking in the past year? 5 or 6 drinks (2 points) How often did you have 6 or more drinks on one occasion in the past year? Daily or almost daily (4 points) Points 10 Interpretation Positive Problems Problem Type SNOMED Code ICD Code Onset Dates Problem Status W/U Status Risk Notes Problem Colon cancer screening (459972165) Colon cancer screening (Z12.11) Active confirmed Problem Already on aspirin (944806506) intermediate frame tender current use of aspirin (Z79.82) Active confirmed Problem Pre-procedure evaluation check (691983520) Encounter for other preprocedural examination (Z01.818) Active confirmed Problem Gastroesophageal reflux disease without esophagitis (388009201) Gastroesophageal reflux disease without esophagitis (K21.9) Active confirmed Problem Essential hypertension (21918101) Hypertension, unspecified type (I10) Active confirmed Plan Of Treatment Future Test Test Name Order Date COLONOSCOPY 12/29/2017 UPPER GI ENDOSCOPY 12/28/2018 Insurance Providers Payer Name Payer Address Payer Phone Subscriber Number Group Number Insured Name Patient Relationship to Insured Coverage Start Date Coverage End Date [employer] [place] [address] [place] [id number] TELMA KAY Self - patient is the insured Medical (General) History Medical History History ICD Code hypertension arthritis anxiety/depression elevated cholesterol low back pain Surgical History Surgery Date(Month/Year) tonsillectomy deviated septum repair section knee surgery tubal ligation benign tumor removed
== END 2025-01-09 10:35 | disposition home or self-care (01) ==
LOC: HO.HMCH 09:50
PROVIDERS: PCP Internal Medicine; Visit Provider Internal Medicine
DX: I10 Essential (primary) hypertension (principal); F33.0 Major depressive disorder, recurrent, mild; E78.5 Hyperlipidemia, unspecified; F41.1 Generalized anxiety disorder

== ENCOUNTER → 2025-01-09 09:50 | Outpatient (BNVA) | payer OTHER, SELFPAY | PROVIDERS: PCP Internal Medicine; Visit Provider Internal Medicine | DX: I10 Essential (primary) hypertension (principal); E78.5 Hyperlipidemia, unspecified; F33.0 Major depressive disorder, recurrent, mild; F41.1 Generalized anxiety disorder; E55.9 Vitamin D deficiency, unspecified; Z63.8 Other specified problems related to primary support group; Z79.899 Other long term (current) drug therapy | CPT/HCPCS: 96127; 99212 ==